=== PATIENT | female | born 1985 | race African-American/Black ===

== ENCOUNTER 2016-05-15 11:53 | Emergency (ER) | payer OTHER ==
[2016-05-15 12:05] VITALS: BMI 19.5
--- NOTE | 2016-05-15 12:22 | PDOC ---
History of Present Illness - General Chief Complaint: Pain, Acute Stated Complaint: CONSTIPATION Time Seen by Provider: 05/15/16 12:20 History Source: Patient Exam Limitations: No Limitations - History of Present Illness Initial Comments: CHIEF COMPLAINT: 30 y/o afebrile female with PMH alcohol abuse (drinks 1L vodka /day) c/o abdominal pain, nausea and vomiting. HISTORY OF PRESENT ILLNESS: The patient drank 1 pint of vodka on Sunday night. Sunday she began vomiting and is c/o burning pain to her upper abdominal area. She states her last BM was sunday and was normal but she hasn't gone since. She also hasn't eaten since Sunday. She denies f/c, WILLIAM, neck pain, cough, CP, SOB, back pain, hematuria, dysuria. Vital signs on arrival are notable for BP of 145/109. REVIEW OF SYSTEMS: GENERAL/CONSTITUTIONAL: No fever. +chills. No weakness. No weight change. HEAD, EYES, EARS, NOSE AND THROAT: No change in vision. No ear pain or discharge. No sore throat. CARDIOVASCULAR: No chest pain or shortness of breath. RESPIRATORY: No cough, wheezing, or hemoptysis. GASTROINTESTINAL: +abd pain, nausea, and vomiting. ?constipation GENITOURINARY: No dysuria, frequency, or change in urination. MUSCULOSKELETAL: No joint or muscle swelling or pain. No neck or back pain. SKIN: No rash or easy bruising. NEUROLOGIC: No headache, vertigo, loss of consciousness, or loss of sensation. PHYSICAL EXAM: GENERAL: The patient is awake, alert, and fully oriented, in no acute distress. She is thin, well appearing and ambulatory HEAD: Normal with no signs of trauma. ENT: Pupils equal, round and reactive to light, extraocular movements intact, sclera anicteric, conjunctiva clear. Neck supple. Mucous membranes moist. Lips dry. +tender left sided posterior cervical lymphadenopathy. LUNGS: Clear to auscultation bilaterally. Normal excursion. No respiratory distress or use of accessory muscles. CV: RRR, S1/S2, no MRG. Cap refill < 2 sec. ABDOMEN: Soft, flat, TTP of epigastric and RUQ with negative Rowe's sign. No rebound, guarding or rigidity. EXTREMITIES: Normal range of motion, no edema. NEUROLOGICAL: Normal speech, normal gait. CN II-XII grossly intact. PSYCH: Normal mood, normal affect. SKIN: Warm, dry, normal turgor, no rashes or lesions noted. Past History - Past Medical History Allergies/Adverse Reactions: Allergies Allergy/AdvReac Type Severity Reaction Status Date / Time No Known Allergies Allergy Verified 05/15/16 12:02 Home Medications: Ambulatory Orders Cetirizine HCl [Zyrtec -] 20 mg PO DAILY PRN 05/15/16 Sucralfate [Carafate -] 1 gm PO QID #56 tablet 05/15/16 Anemia: Yes Asthma: No Cancer: No Cardiac Disorders: No CVA: No COPD: No CHF: No Dementia: No Diabetes: No GI Disorders: No Disorders: No HTN: No Hypercholesterolemia: No Kidney Stones: No Liver Disease: No Suicide Attempt (Hx): No Seizures: No Thyroid Disease: No Other medical history: alcohol abuse,migraines - Reproductive History PID: No - Immunization History Immunization Up to Date: Yes - Psycho/Social/Smoking Cessation Hx Anxiety: No Suicidal Ideation: No Smoking Status: Yes Smoking History: Current every day smoker Have you smoked in the past 12 months: Yes Number of Cigarettes Smoked Daily: 5 Information on smoking cessation initiated: Yes 'Breaking Loose' booklet given: 05/15/16 Hx Alcohol Use: Yes (pinet vodka daily) Drug/Substance Use Hx: No Substance Use Type: Alcohol, Marijuana Hx Substance Use Treatment: Yes Abd/GI Specific PMHX - Complaint Specific PMHX Hepatitis: No Pancreatitis: No *Physical Exam - Vital Signs Last Vital Signs Temp Pulse Resp BP Pulse Ox 97.8 F 70 18 145/109 100 05/15/16 12:02 05/15/16 12:02 05/15/16 12:02 05/15/16 12:02 05/15/16 12:02 ED Treatment Course - LABORATORY CBC & Chemistry Diagram: 05/15/16 13:25 05/15/16 13:25 Medical Decision Making - Medical Decision Making A/P: 30 y/o afebrile female with gastritis secondary to ETOH abuse. Plan is as follows: 1. Labs 2. IV fluids 3. IV zofran, pepcid 4. PO carafate Labs are unremarkable. The patient states she feels much better. Will discharge to home with dx of alcoholic gastritis. Will d/c with rx for carafate. Suggested she stop drinking alcohol and f/u with GI specialist within 2 weeks. Pt instructed to return to the ER with any worsening or concerning symptoms. The patient verbalizes understanding of all instructions, has no further questions and is awaiting discharge. *DC/Admit/Observation/Transfer Diagnosis at time of Disposition: Gastritis Qualifiers: Gastritis type: alcoholic Chronicity: acute Gastritis bleeding: without bleeding Qualified Code(s): K29.20 - Alcoholic gastritis without bleeding - Discharge Dispostion Disposition: HOME Condition at time of disposition: Improved - Referrals Referrals: iVkash Goddard MD [Staff Physician] - Sincere Shepard MD [Staff Physician] - 14 days - Patient Instructions Printed Discharge Instructions: DI for Alcoholic Gastritis Additional Instructions: Discharge Instructions: -Take medication as prescribed -Do not drink alcohol -Follow up with Dr. Shepard within 2 weeks -Return to the ER with any worsening or concerning symptoms
[2016-05-15] MEDS ORDERED: ONDANSETRON 4 MG/2 ML VIAL IVPUSH ONE (12:36)
[2016-05-15] MEDS ORDERED: FAMOTIDINE 20 MG/50 ML IVPB 50 ML IVPB ONE ×2 (12:36→13:20)
[2016-05-15] MEDS ORDERED: SODIUM CHLORIDE 1,000 ML IV STA (12:36)
[2016-05-15] MEDS ORDERED: SUCRALFATE 1 GM TABLET (FP) PO ONE (12:37)
[2016-05-15] MEDS ORDERED: SUCRALFATE 1 GM TABLET (FP) ONE (13:20)
[2016-05-15] MEDS ORDERED: ONDANSETRON 4 MG/2 ML VIAL ONE (13:20)
[2016-05-15 13:36] LABS: BASOPHIL 0.8 % (0-2.0); EOSINOPHIL 1.7 % (0-4.5); MCH 26.7 pg (25.7-33.7); MCHC 32.2 g/dl (32.0-36.0); MEAN CELL VOLUME 82.8 fl (80-96); MEAN PLT VOLUME 8.5 fl (7.5-11.1); NEUTROPHILS 73.3 % (42.8-82.8); PLATELET COUNT 319 K/MM3 (134-434); RDW 18.6 % (11.6-15.6); WHITE BLOOD COUNT 9.7 K/mm3 (4.0-10.0)
--- NOTE | 2016-05-15 13:54 | PDOC ---
*Physical Exam - Vital Signs Last Vital Signs Temp Pulse Resp BP Pulse Ox 97.8 F 70 18 145/109 100 05/15/16 12:02 05/15/16 12:02 05/15/16 12:02 05/15/16 12:02 05/15/16 12:02 ED Treatment Course - LABORATORY CBC & Chemistry Diagram: 05/15/16 13:25 05/15/16 13:25 - ADDITIONAL ORDERS Additional order review: 05/15/16 13:25 RBC 4.84 MCV 82.8 MCHC 32.2 RDW 18.6 H MPV 8.5 Neutrophils % 73.3 D Lymphocytes % 17.2 D Monocytes % 7.0 Eosinophils % 1.7 Basophils % 0.8 Medical Decision Making - Medical Decision Making 05/15/16 13:53 Patient seen and evaluated with the nurse practitioner. I agree with the overall evaluation, assessment, and management with the following summary of visit: 30-year-old female presents with abdominal pain in the setting of EtOH intake. Exam as noted, agree with workup including labs and urinalysis, will reassess and dispo accordingly. *DC/Admit/Observation/Transfer Diagnosis at time of Disposition: Gastritis Qualifiers: Gastritis type: alcoholic Chronicity: acute Gastritis bleeding: without bleeding Qualified Code(s): K29.20 - Alcoholic gastritis without bleeding - Discharge Dispostion Condition at time of disposition: Improved - Referrals Referrals: Vikash Goddard MD [Staff Physician] - - Patient Instructions Printed Discharge Instructions: DI for Alcoholic Gastritis - Post Discharge Activity
[2016-05-15 14:02] LABS: ALBUMIN 4.4 g/dl (3.4-5.0); ALK PHOS 70 U/L (45-117); ANION GAP 11 (8-16); BILIRUBIN,TOTAL 1.1 mg/dL (0.2-1.0); CALCIUM 9.8 mg/dL (8.5-10.1); CO2 27 mmol/L (21-32); CREATININE 0.7 mg/dL (0.55-1.02); GLUCOSE,RANDOM 85 mg/dL (74-106); SGOT/AST 31 U/L (15-37); SGPT/ALT 23 U/L (12-78); TOT PROT 9.1 g/dl (6.4-8.2)
[2016-05-15 17:10] VITALS: BP 138/88; PULSE 55; TEMP 98.5
== END 2016-05-15 16:30 | disposition home or self-care (01) ==
LOC: JER 11:53
PROC: 3E033GC Introduction of Other Therapeutic Substance into Peripheral Vein, Percutaneous Approach (ICD-10-PCS; principal; 2016-05-15)
PROC: 3E033GC Introduction of Other Therapeutic Substance into Peripheral Vein, Percutaneous Approach (ICD-10-PCS; 2016-05-15)
DX: K29.20 Alcoholic gastritis without bleeding (principal)
CPT/HCPCS: 36415; 80053; 83690; 85025; 96365; 96375; 99282-25

== ENCOUNTER 2016-12-06 11:12 | Emergency (ER) | payer OTHER ==
[2016-12-06 11:21] VITALS: BP 147/81; PULSE 77; TEMP 98.2; BMI 19.8
--- NOTE | 2016-12-06 11:45 | PDOC ---
History of Present Illness - General History Source: Patient Exam Limitations: No Limitations - History of Present Illness Initial Comments: 12/06/16 11:48 The patient is a 31 year old female, with a significant past medical history of migraine (never officially diagnosed), previous EtOH abuse (last episode July) who presents to the emergency department with headache. The patient reports having associated photophobia with her headache. She reports having about 13-14 migraines per month. She ranks her headache a 10/10 in pain intensity. She denies recent fevers, chills, or dizziness. She denies recent nausea, vomit, diarrhea or constipation. She denies recent dysuria, frequency, urgency or hematuria. She denies recent chest pain or shortness of breath. Allergies: NKA Past surgical history: None reported. Social history: Nonsmoker.See HPI <Dionicio Ayoub - Last Filed: 12/06/16 11:48> <Paulo Moran - Last Filed: 12/06/16 14:53> - General Chief Complaint: Migraine Headache Stated Complaint: MIGRAINE Time Seen by Provider: 12/06/16 11:43 Past History <Dionicio Ayoub - Last Filed: 12/06/16 11:48> - Past Medical History Anemia: Yes Asthma: No Cancer: No Cardiac Disorders: No CVA: No COPD: No CHF: No Dementia: No Diabetes: No GI Disorders: No Disorders: No HTN: No Hypercholesterolemia: No Kidney Stones: No Liver Disease: No Seizures: No Thyroid Disease: No - Reproductive History PID: No - Immunization History Immunization Up to Date: Yes - Suicide/Smoking/Psychosocial Hx Smoking Status: Yes Smoking History: Current every day smoker Have you smoked in the past 12 months: Yes Number of Cigarettes Smoked Daily: 4 Information on smoking cessation initiated: No 'Breaking Loose' booklet given: 05/15/16 Hx Alcohol Use: No (RECOVERED ALCOHOLIC) Drug/Substance Use Hx: No Substance Use Type: Alcohol, Marijuana Hx Substance Use Treatment: Yes <Paulo Moran - Last Filed: 12/06/16 14:53> - Past Medical History Allergies/Adverse Reactions: Allergies Allergy/AdvReac Type Severity Reaction Status Date / Time No Known Allergies Allergy Verified 12/06/16 11:21 Home Medications: Ambulatory Orders Ibuprofen 800 mg PO TID #30 tablet 12/06/16 Ondansetron [Zofran *Odt*] 8 mg SL TID #30 od.tablet 12/06/16 Review of Systems - Review of Systems Able to Perform ROS?: Yes Comments:: 12/06/16 11:48 GENERAL/CONSTITUTIONAL: No fever or chills. No weakness. HEAD, EYES, EARS, NOSE AND THROAT: No change in vision. No ear pain or discharge. No sore throat. CARDIOVASCULAR: No chest pain or shortness of breath. RESPIRATORY: No cough, wheezing, or hemoptysis. GASTROINTESTINAL: No nausea, vomiting, diarrhea or constipation. GENITOURINARY: No dysuria, frequency, or change in urination. MUSCULOSKELETAL: No joint or muscle swelling or pain. No neck or back pain. SKIN: No rash NEUROLOGIC: +headache No vertigo, loss of consciousness, or change in strength/ sensation. ENDOCRINE: No increased thirst. No abnormal weight change. HEMATOLOGIC/LYMPHATIC: No anemia, easy bleeding, or history of blood clots. ALLERGIC/IMMUNOLOGIC: No hives or skin allergy. <Dionicio Ayoub - Last Filed: 12/06/16 11:48> *Physical Exam - Vital Signs Last Vital Signs Temp Pulse Resp BP Pulse Ox 98.2 F 77 20 147/81 100 12/06/16 11:17 12/06/16 11:17 12/06/16 11:17 12/06/16 11:17 12/06/16 11:17 - Physical Exam Comments: 12/06/16 11:49 GENERAL: Awake, alert, and fully oriented, in no acute distress HEAD: No signs of trauma EYES: PERRLA, EOMI, sclera anicteric, conjunctiva clear ENT: Auricles normal inspection, hearing grossly normal, nares patent, oropharynx clear without exudates. Moist mucosa NECK: Normal ROM, supple, no lymphadenopathy, JVD, or masses LUNGS: Breath sounds equal, clear to auscultation bilaterally. No wheezes, and no crackles HEART: Regular rate and rhythm, normal S1 and S2, no murmurs, rubs or gallops ABDOMEN: Soft, nontender, normoactive bowel sounds. No guarding, no rebound. No masses EXTREMITIES: Normal range of motion, no edema. No clubbing or cyanosis. No cords, erythema, or tenderness NEUROLOGICAL: Cranial nerves II through XII grossly intact. Normal speech, normal gait SKIN: Warm, Dry, normal turgor, no rashes or lesions noted. <Dionicio Ayoub - Last Filed: 12/06/16 11:48> - Vital Signs Last Vital Signs Temp Pulse Resp BP Pulse Ox 98.2 F 77 20 147/81 100 12/06/16 11:17 12/06/16 11:17 12/06/16 11:17 12/06/16 11:17 12/06/16 11:17 <Paulo Moran - Last Filed: 12/06/16 14:53> *DC/Admit/Observation/Transfer - Attestations Scribe Attestion: 12/06/16 11:49 Documentation prepared by Dionicio Ayoub, acting as medical practice manager for Paulo Moran DO. <Dionicio Ayoub - Last Filed: 12/06/16 11:48> - Discharge Dispostion Admit: No - Attestations Physician Attestion: 12/06/16 11:44 I, Dr. Paulo Moran, attest that this document has been prepared under my direction and personally reviewed by me in its entirety. I further attest, that it accurately reflects all work, treatment, procedures and medical decision -making performed by me. <Paulo Moran - Last Filed: 12/06/16 14:53> Diagnosis at time of Disposition: Migraine headache Qualifiers: Migraine type: other Status migrainosus presence: without status migrainosus Intractability: not intractable Qualified Code(s): G43.809 - Other migraine, not intractable, without status migrainosus - Discharge Dispostion Disposition: HOME - Prescriptions Prescriptions: Ibuprofen 800 mg PO TID #30 tablet Ondansetron [Zofran *Odt*] 8 mg SL TID #30 od.tablet - Referrals Referrals: Sohail Alcantara MD [Staff Physician] - - Patient Instructions Printed Discharge Instructions: DI for Migraine Additional Instructions: Libby- Please follow up with Neurology. Your Head CT was normal. Return to us if worse or new symptoms occur. Hope the medicines help Dr. Paulo Moran
[2016-12-06] MEDS ORDERED: KETOROLAC TROMETHAMINE 30 MG/1 ML VIAL IVPUSH ONE (11:53)
[2016-12-06] MEDS ORDERED: ONDANSETRON 4 MG/2 ML VIAL IVPB ONE (11:53)
[2016-12-06] MEDS ORDERED: METOCLOPRAMIDE HCL INJECTION 10 MG/2 ML VIAL IVPUSH ONE (11:53)
[2016-12-06] MEDS ORDERED: SODIUM CHLORIDE 2,000 ML IV STA (11:53)
[2016-12-06] MEDS ORDERED: PREGABALIN 100 MG CAPSULE PO ONE (11:57)
[2016-12-06] MEDS ORDERED: KETOROLAC TROMETHAMINE 30 MG/1 ML VIAL ONE (12:14)
[2016-12-06] MEDS ORDERED: METOCLOPRAMIDE HCL INJECTION 10 MG/2 ML VIAL ONE (12:14)
[2016-12-06] MEDS ORDERED: ONDANSETRON 4 MG/2 ML VIAL ONE (12:14)
[2016-12-06] MEDS ORDERED: PREGABALIN 100 MG CAPSULE ONE (13:03)
[2016-12-06] MEDS ORDERED: ONDANSETRON *ODT* 4 MG TABLET SL ONE (14:51)
[2016-12-06] MEDS ORDERED: ONDANSETRON *ODT* 4 MG TABLET ONE (15:21)
== END 2016-12-06 15:22 | disposition home or self-care (01) ==
LOC: JER 11:12
PROC: 3E033GC Introduction of Other Therapeutic Substance into Peripheral Vein, Percutaneous Approach (ICD-10-PCS; principal; 2016-12-06)
PROC: 3E0333Z Introduction of Anti-inflammatory into Peripheral Vein, Percutaneous Approach (ICD-10-PCS; 2016-12-06)
PROC: 3E0337Z Introduction of Electrolytic and Water Balance Substance into Peripheral Vein, Percutaneous Approach (ICD-10-PCS; 2016-12-06)
DX: G43.809 Other migraine, not intractable, without status migrainosus (principal); F10.10 Alcohol abuse, uncomplicated
CPT/HCPCS: 70450-TC; 84703; 96361; 96374; 96375; 99282-25

== ENCOUNTER 2017-04-20 13:21 | Inpatient (IN) | payer OTHER ==
[2017-04-20 15:42] VITALS: BMI 20.3
--- NOTE | 2017-04-20 20:35 | HP ---
CIWA Score - CIWA Score Nausea/Vomitin-No Nausea/No Vomiting Muscle Tremors: 3 Anxiety: 3 Agitation: 4-Moderately Restless Paroxysmal Sweats: 3 Orientation: 0-Oriented Tacttile Disturbances: 0-None Auditory Disturbances: 0-None Visual Disturbances: 2-Mild Sensitivity Headache: 4-Moderately Severe (pain 8/10) CIWA-Ar Total Score: 19 Admission ROS S - HPI Chief Complaint: withdrawal symptoms Allergies/Adverse Reactions: Allergies Allergy/AdvReac Type Severity Reaction Status Date / Time No Known Allergies Allergy Verified 04/20/17 16:30 History of Present Illness: 31 yo female with hx alcohol and marijuana dependence is here for detox. Reports smoking cigarettes since 15 years old, currently smokes 6 cigarettes per day. PMHX: never injury to the left hands, insomnia, anxiety and depression with previous out patient psychiatric treatment. Last detox September, at [facility]. Longest period of sobriety 7 months . Denies suicidal/ homicidal ideation or suicide attempt. - Ebola screening Have you traveled outside of the country in the last 21 days: No Have you had contact with anyone from an Ebola affected area: No Have you been sick,other than usual withdrawal symptoms: No Do you have a fever: No - Review of Systems Constitutional: Chills, Loss of Appetite (trying to drink ensure in the AM, has not been eating solids), Changes in sleep, Unintentional Wgt. Loss (10 lbs 4-5 months) EENT: reports: No Symptoms Reported Respiratory: reports: Shortness of Breath (with prolong ambualtion) Cardiac: reports: No Symptoms Reported GI: reports: Poor Appetite, Abdominal cramping : reports: No Symptoms Reported (reports no urinary symptoms) Musculoskeletal: reports: Joint Pain Integumentary: reports: No Symptoms Reported Neuro: reports: Numbness (left hand) Endocrine: reports: Increased Thirst, Change in Weight Hematology: reports: Anemia Psychiatric: reports: Orientated x3, Depressed, other (reports feeling sad and melancholic d/t of her mother) Other Systems: Reviewed and Negative Patient History - Patient Medical History Hx Anemia: Yes Hx Asthma: No Hx Chronic Obstructive Pulmonary Disease (COPD): No Hx Cancer: No Hx Cardiac Disorders: No Hx Congestive Heart Failure: No Hx Hypertension: No Hx Hypercholesterolemia: No Hx Pacemaker: No HX Cerebrovascular Accident: No Hx Seizures: No Hx Dementia: No Hx Diabetes: No Hx Gastrointestinal Disorders: No Hx Liver Disease: No Hx Genitourinary Disorders: No Hx Sexually Transmitted Disorders: No Hx Renal Disease (ESRD): No Hx Thyroid Disease: No Hx Human Immunodeficiency Virus (HIV): No (negative) Hx Hepatitis C: No (negative) Hx Depression: Yes Hx Suicide Attempt: No Hx Bipolar Disorder: No (denies) Hx Schizophrenia: No - Patient Surgical History Past Surgical History: No Hx Neurologic Surgery: No Hx Cataract Extraction: No Hx Cardiac Surgery: No Hx Lung Surgery: No Hx Breast Surgery: No Hx Breast Biopsy: No Hx Abdominal Surgery: No Hx Appendectomy: No Hx Cholecystectomy: No Hx Genitourinary Surgery: No Hx Section: No Hx Orthopedic Surgery: No Anesthesia Reaction: No - PPD History Previous Implant?: Yes Documented Results: Negative w/proof Date: 10/16/15 - Reproductive History Last Menstrual Period: 04/20/17 Patient : No - Smoking Cessation Smoking history: Current every day smoker Have you smoked in the past 12 months: Yes Aproximately how many cigarettes per day: 4 Hx Chewing Tobacco Use: No Initiated information on smoking cessation: Yes 'Breaking Loose' booklet given: 04/20/17 - Substances Abused Alcohol Route: Oral Frequency: Daily Amount used: LIQUOR- 1 LITER Age of first use: 17 Date of Last Use: 04/20/17 Marijuana/Hashish Frequency: 1-2 times per week Amount used: did not specify Age of first use: 17 Date of Last Use: 04/20/17 Family Disease History - Family Disease History Family Disease History: CA: Father (alive, colon and prostate CA), Mother (dec, Ovarian and lung cancer ), Other: Father, Mother Admission Physical Exam S - Vital Signs Vital Signs: Vital Signs - 24 hr 04/20/17 15:40 Temperature 98.3 F Pulse Rate 76 Respiratory 20 Rate Blood Pressure 117/73 - Physical General Appearance: Yes: Thin, Anxious HEENTM: Yes: Hearing grossly Normal, Normal ENT Inspection, Normocephalic, Normal Voice, VINICIO, Pharynx Normal, Tm's normal, Other (dy mucous membranes) Respiratory: Yes: Chest Non-Tender, Lungs Clear, Normal Breath Sounds, No Respiratory Distress, No Accessory Muscle Use Neck: Yes: Within Normal Limits, No masses,lesions,Nodules, Trachea in good position Breast: Yes: Breast Exam Deferred Cardiology: Yes: Regular Rhythm, Regular Rate, S1, S2 Abdominal: Yes: Normal Bowel Sounds, Non Tender, Flat, Soft Genitourinary: Yes: Within Normal Limits (reports no urinary symptoms) Back: Yes: Within Normal Limits, Normal Inspection Musculoskeletal: Yes: full range of Motion, Gait Steady, Pelvis Stable Extremities: Yes: Normal Capillary Refill, Normal Inspection, Normal Range of Motion, Non-Tender, Other (poor skin turgor) Neurological: Yes: manager behavior II-XII NML intact, Fully Oriented, Alert, Motor Strength 5/5, Normal Mood/Affect, Normal Response Integumentary: Yes: Normal Color, Dry, Warm Lymphatic: Yes: Within Normal Limits - Diagnostic (1) Paresthesias in left hand Current Visit: Yes Status: Chronic (2) Migraine headache Current Visit: Yes Status: Acute Qualifiers: Migraine type: other Status migrainosus presence: without status migrainosus Intractability: not intractable Qualified Code(s): G43.809 - Other migraine, not intractable, without status migrainosus (3) Weight loss Current Visit: Yes Status: Acute (4) Alcohol dependence with uncomplicated withdrawal Current Visit: Yes Status: Acute (5) Cannabis dependence Current Visit: Yes Status: Chronic (6) Nicotine dependence Current Visit: No Status: Chronic Qualifiers: Nicotine product type: cigarettes Substance use status: uncomplicated Qualified Code(s): F17.210 - Nicotine dependence, cigarettes, uncomplicated (7) Dehydration Current Visit: Yes Status: Acute (8) Depressed mood Current Visit: Yes Status: Acute Cleared for Admission [facility] - Detox or Rehab [facility] Level of Care: Medically Managed Detox Regimen/Protocol: Librium [facility] Breath Alcohol Content Breath Alcohol Content: 0 Urine Pregancy Test - Result Urine Test Results: Negative- NO Line Present Urine Drug Screen - Results Drug Screen Negative: No Urine Drug Screen Results: THC-Marijuana
[2017-04-20] MEDS ORDERED: NICOTINE POLACRILEX 2 MG GUM BC PRN (20:53)
[2017-04-20] MEDS ORDERED: IBUPROFEN 400 MG TABLET (FP) PO PRN (20:53)
[2017-04-20] MEDS ORDERED: LOPERAMIDE HCL 2 MG CAPSULE PO PRN (20:53)
[2017-04-20] MEDS ORDERED: guaiFENesin/D-METHORPHAN HB 10 ML UNIT-DOSE CUPS PO PRN (20:53)
[2017-04-20] MEDS ORDERED: MAGNESIUM CITRATE 300 ML BOTTLE PO PRN (20:53)
[2017-04-20] MEDS ORDERED: P-EPHED 60MG/TRIPROLIDI 2.5MG TABLET PO PRN (20:53)
[2017-04-20] MEDS ORDERED: MAGNESIUM HYDROX 2400MG/30ML ORAL SUSPENSION 30 ML CUP PO PRN (20:53)
[2017-04-20] MEDS ORDERED: MENTHOL/PHENOL 1 EACH UD MM PRN (20:53)
[2017-04-20] MEDS ORDERED: chlordiazePOXIDE HCL 25 MG CAPSULE PO ONE (20:53)
[2017-04-20] MEDS ORDERED: MAG HYDROX/AL HYDROX/SIMETH 30 ML UNIT-DOSE CUP PO PRN (20:53)
[2017-04-20] MEDS: NICOTINE 14 MG/24 HOURS TOPICAL PATCH TD SCH (23:06)
[2017-04-20] MEDS: chlordiazePOXIDE HCL 25 MG CAPSULE PO SCH (23:06)
[2017-04-20] MEDS: THIAMINE HCL 100 MG TABLET (FP) PO SCH (23:55)
[2017-04-21 02:38] LABS: URINE APPEARANCE CLEAR; URINE BILIRUBIN NEGATIVE (NEGATIVE); URINE BLOOD 3+ (NEGATIVE); URINE COLOR YELLOW; URINE GLUCOSE (UA) NEGATIVE (NEGATIVE); URINE KETONE 2+ (NEGATIVE); URINE LEUK ESTERASE NEGATIVE (NEGATIVE); URINE NITRITE NEGATIVE (NEGATIVE)
[2017-04-21 02:48] LABS: URINE PROTEIN 2+ (NEGATIVE)
[2017-04-21 02:49] LABS: EPI CELLS RARE /HPF (FEW); URINE MUCUS FEW
[2017-04-21] MEDS: chlordiazePOXIDE HCL 25 MG CAPSULE PO SCH ×4 (05:42→22:31)
[2017-04-21] MEDS: ACETAMINOPHEN 325 MG TABLET (FP) PO PRN (07:48)
[2017-04-21] MEDS: PRENATAL VITAMINS W/ FOLIC ACID TABLET (FP) PO SCH (10:21)
[2017-04-21] MEDS: PANTOPRAZOLE 40 MG TABLET (FP) PO SCH (10:21)
[2017-04-21] MEDS: NICOTINE 14 MG/24 HOURS TOPICAL PATCH TD SCH (10:22)
[2017-04-21 10:48] LABS: HEMATOCRIT 38.6 % (32.4-45.2); HEMOGLOBIN 12.3 GM/dL (10.7-15.3); MCH 28.6 pg (25.7-33.7); MEAN CELL VOLUME 89.5 fl (80-96); MEAN PLT VOLUME 8.9 fl (7.5-11.1); PLATELET COUNT 265 K/MM3 (134-434); RBC 4.31 M/mm3 (3.60-5.2); RDW 14.2 % (11.6-15.6); WHITE BLOOD COUNT 6.5 K/mm3 (4.0-10.0)
[2017-04-21 11:12] LABS: ALBUMIN 4.2 g/dl (3.4-5.0); ALK PHOS 79 U/L (45-117); ANION GAP 9 (8-16); BILIRUBIN,TOTAL 1.5 mg/dL (0.2-1.0); BLOOD UREA NITROGEN 14 mg/dL (7-18); CHLORIDE 101 mmol/L (98-107); CO2 27 mmol/L (21-32); CREATININE 0.6 mg/dL (0.55-1.02); GLUCOSE,RANDOM 81 mg/dL (74-106); POTASSIUM 3.3 mmol/L (3.5-5.1); SGOT/AST 20 U/L (15-37); SGPT/ALT 16 U/L (12-78); SODIUM 137 mmol/L (136-145); TOT PROT 8.8 g/dl (6.4-8.2)
[2017-04-21 11:18] LABS: SICKLE CELL SCREEN NEGATIVE (NEGATIVE)
--- NOTE | 2017-04-21 12:19 | PN ---
S CIWA - CIWA Score Nausea/Vomitin Muscle Tremors: 3 Anxiety: 3 Agitation: 3 Paroxysmal Sweats: 1-Minimal Palms Moist Orientation: 0-Oriented Tacttile Disturbances: 1-Very Mild Itch/Numbness Auditory Disturbances: 1-Very Mild Visual Disturbances: 0-None Headache: 2-Mild CIWA-Ar Total Score: 17 [facility] Progress Note (SOAP) Subjective: ALERT,IRRITABLE,PAIN IN THE BODY AND BACK,TREMOR,PAIN IN THE BODY AND BACK Objective: 04/21/17 12:17 Vital Signs Temperature 97.3 F L 04/21/17 10:10 Pulse Rate 60 04/21/17 10:10 Respiratory Rate 18 04/21/17 10:10 Blood Pressure 123/74 04/21/17 10:10 O2 Sat by Pulse Oximetry (%) EKG SINUS BRADYCARDIA 56/MIN,NO CHEST PAIN,NO SOB,NO DIZZINESS Laboratory Last Values WBC 6.5 K/mm3 (4.0-10.0) D 04/21/17 07:50 RBC 4.31 M/mm3 (3.60-5.2) 04/21/17 07:50 Hgb 12.3 GM/dL (10.7-15.3) 04/21/17 07:50 Hct 38.6 % (32.4-45.2) 04/21/17 07:50 MCV 89.5 fl (80-96) 04/21/17 07:50 MCH 28.6 pg (25.7-33.7) 04/21/17 07:50 MCHC 32.0 g/dl (32.0-36.0) 04/21/17 07:50 RDW 14.2 % (11.6-15.6) D 04/21/17 07:50 Plt Count 265 K/MM3 (134-434) 04/21/17 07:50 MPV 8.9 fl (7.5-11.1) 04/21/17 07:50 Sickle Cell Screen Negative (NEGATIVE) 04/21/17 07:50 Sodium 137 mmol/L (136-145) 04/21/17 07:50 Potassium 3.3 mmol/L (3.5-5.1) L 04/21/17 07:50 Chloride 101 mmol/L (98-107) 04/21/17 07:50 Carbon Dioxide 27 mmol/L (21-32) 04/21/17 07:50 Anion Gap 9 (8-16) 04/21/17 07:50 BUN 14 mg/dL (7-18) 04/21/17 07:50 Creatinine 0.6 mg/dL (0.55-1.02) 04/21/17 07:50 Creat Clearance w eGFR > 60 (>60) 04/21/17 07:50 Random Glucose 81 mg/dL (74-106) 04/21/17 07:50 Calcium 9.0 mg/dL (8.5-10.1) 04/21/17 07:50 Total Bilirubin 1.5 mg/dL (0.2-1.0) H D 04/21/17 07:50 AST 20 U/L (15-37) 04/21/17 07:50 ALT 16 U/L (12-78) 04/21/17 07:50 Alkaline Phosphatase 79 U/L (45-117) 04/21/17 07:50 Total Protein 8.8 g/dl (6.4-8.2) H 04/21/17 07:50 Albumin 4.2 g/dl (3.4-5.0) 04/21/17 07:50 Urine Color Yellow 04/20/17 22:42 Urine Appearance Clear 04/20/17 22:42 Urine pH 5.0 (5.0-8.0) 04/20/17 22:42 Ur Specific Elizabeth 1.028 (1.001-1.035) 04/20/17 22:42 Urine Protein 2+ (NEGATIVE) H 04/20/17 22:42 Urine Glucose (UA) Negative (NEGATIVE) 04/20/17 22:42 Urine Ketones 2+ (NEGATIVE) H 04/20/17 22:42 Urine Blood 3+ (NEGATIVE) H 04/20/17 22:42 Urine Nitrite Negative (NEGATIVE) 04/20/17 22:42 Urine Bilirubin Negative (NEGATIVE) 04/20/17 22:42 Urine Urobilinogen 2.0 mg/dL (0.2-1.0) H 04/20/17 22:42 Ur Leukocyte Esterase Negative (NEGATIVE) 04/20/17 22:42 Urine WBC (Auto) 7 /hpf (3-5) 04/20/17 22:42 Urine RBC (Auto) 618 /hpf (0-3) 04/20/17 22:42 Ur Epithelial Cells Rare /HPF (FEW) 04/20/17 22:42 Urine Mucus Few 04/20/17 22:42 RPR Titer Nonreactive (NONREACTIVE) 04/21/17 07:50 04/21/17 12:21 PATIENT IS MENSTRUATING NOW Assessment: 04/21/17 12:22 WITHDRAWAL SYMPTOM Plan: CONTINUE DETOX
--- NOTE | 2017-04-21 17:48 | CONSULT ---
[facility] Psychiatric Consult - Data Date of interview: 04/21/17 Admission source: [facility] Identifying data: Readmission to [facility] for this 31 y/o AA female seeking detox treatment on for alcohol and marijuana dependence.Patient is single without children,domiciled,currently unemployed and supported by relatives. Substance Abuse History: Confirmed by patient in this session.[facility] report .Smoking history: Current every day smoker. Have you smoked in the past 12 months: Yes. Aproximately how many cigarettes per day: 4. Hx Chewing Tobacco Use: No. Initiated information on smoking cessation: Yes. 'Breaking Loose' booklet given: 04/20/17. - Substances Abused. Alcohol. Route: Oral. Frequency: Daily. Amount used: LIQUOR- 1 LITER. Age of first use: 17. Date of Last Use: 04/20/17. Marijuana/Hashish. Frequency : 1-2 times per week. Amount used: did not specify. Age of first use: 17. 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 Psychiatric History: No reported history of psychiatric hospitalizations.Brief exposure to zoloft and seroquel (2012) to address complaints of anxiety / depression.Patient dropped out of OPD care because of poor response to medications.Ms Gil denies history of suicide attempts (she states that she punched the glass in an impulsive act). Physical/Sexual Abuse/Trauma History: No history of abuse. Additional Comment: Urine Drug Screen Results: THC-Marijuana.Noted. Mental Status Exam - Mental Status Exam Alert and Oriented to: Time, Place, Person Cognitive Function: Good Patient Appearance: Well Groomed Mood: Anxious (mildly anxious), Hopeful Affect: Appropriate, Normal Range Patient Behavior: Appropriate, Cooperative Speech Pattern: Clear, Appropriate Voice Loudness: Normal Thought Process: Intact, Goal Oriented Thought Disorder: Not Present Hallucinations: Denies Suicidal Ideation: Denies Insight/Judgement: Poor Sleep: Poorly (wants seroquel), Difficulty falling asleep Appetite: Good Muscle strength/Tone: Normal Gait/Station: Normal Psychiatric Findings - Problem List ([place] 1, 2,3) (1) Alcohol dependence with uncomplicated withdrawal Current Visit: Yes Status: Acute (2) Cannabis dependence Current Visit: Yes Status: Acute (3) Nicotine dependence Current Visit: Yes Status: Acute Qualifiers: Nicotine product type: cigarettes Substance use status: uncomplicated Qualified Code(s): F17.210 - Nicotine dependence, cigarettes, uncomplicated (4) Alcohol-induced mood disorder Current Visit: Yes Status: Suspected (5) Insomnia Current Visit: Yes Status: Acute - Initial Treatment Plan Initial Treatment Plan: Psychoeducation and support.Detoxification in effect.Sleep hygiene discussed with patient.Strategies of treatment for depression reviewed with patient.Emphasis is currently placed on detoxification/ sobriety.Antidepressant medications deferred until transition to rehabilitation unit (3-4 days).In the meantime,will resume seroquel 50 mg po hs (patient's request).Side effects/benefits are revisited with the patient.Ms Gil has expressed her agreement with this plan of care.Observation.
[2017-04-21] MEDS: THIAMINE HCL 100 MG TABLET (FP) PO SCH (22:31)
[2017-04-21] MEDS: hydrOXYzine PAMOATE 50 MG CAPSULE (FP) PO PRN (22:31)
[2017-04-22] MEDS: ACETAMINOPHEN 325 MG TABLET (FP) PO PRN ×2 (05:27→10:26)
[2017-04-22] MEDS: chlordiazePOXIDE HCL 25 MG CAPSULE PO SCH ×3 (05:27→18:05)
[2017-04-22] MEDS: PANTOPRAZOLE 40 MG TABLET (FP) PO SCH (10:24)
[2017-04-22] MEDS: NICOTINE 14 MG/24 HOURS TOPICAL PATCH TD SCH (10:25)
[2017-04-22] MEDS: PRENATAL VITAMINS W/ FOLIC ACID TABLET (FP) PO SCH (10:25)
--- NOTE | 2017-04-22 13:04 | PN ---
S CIWA - CIWA Score Nausea/Vomitin-Mild Nausea/No Vomiting Muscle Tremors: 3 Anxiety: 3 Agitation: 3 Paroxysmal Sweats: 1-Minimal Palms Moist Orientation: 0-Oriented Tacttile Disturbances: 1-Very Mild Itch/Numbness Auditory Disturbances: 0-None Visual Disturbances: 0-None Headache: 1-Very Mild CIWA-Ar Total Score: 13 BHS Progress Note (SOAP) Subjective: headache sweat tremor anxiety restlessness Objective: 04/22/17 13:02 Vital Signs Temperature 97.7 F 04/22/17 10:13 Pulse Rate 77 04/22/17 10:13 Respiratory Rate 20 04/22/17 10:13 Blood Pressure 127/67 04/22/17 10:13 O2 Sat by Pulse Oximetry (%) Laboratory Last Values WBC 6.5 K/mm3 (4.0-10.0) D 04/21/17 07:50 RBC 4.31 M/mm3 (3.60-5.2) 04/21/17 07:50 Hgb 12.3 GM/dL (10.7-15.3) 04/21/17 07:50 Hct 38.6 % (32.4-45.2) 04/21/17 07:50 MCV 89.5 fl (80-96) 04/21/17 07:50 MCH 28.6 pg (25.7-33.7) 04/21/17 07:50 MCHC 32.0 g/dl (32.0-36.0) 04/21/17 07:50 RDW 14.2 % (11.6-15.6) D 04/21/17 07:50 Plt Count 265 K/MM3 (134-434) 04/21/17 07:50 MPV 8.9 fl (7.5-11.1) 04/21/17 07:50 Sickle Cell Screen Negative (NEGATIVE) 04/21/17 07:50 Sodium 137 mmol/L (136-145) 04/21/17 07:50 Potassium 3.3 mmol/L (3.5-5.1) L 04/21/17 07:50 Chloride 101 mmol/L (98-107) 04/21/17 07:50 Carbon Dioxide 27 mmol/L (21-32) 04/21/17 07:50 Anion Gap 9 (8-16) 04/21/17 07:50 BUN 14 mg/dL (7-18) 04/21/17 07:50 Creatinine 0.6 mg/dL (0.55-1.02) 04/21/17 07:50 Creat Clearance w eGFR > 60 (>60) 04/21/17 07:50 Random Glucose 81 mg/dL (74-106) 04/21/17 07:50 Calcium 9.0 mg/dL (8.5-10.1) 04/21/17 07:50 Total Bilirubin 1.5 mg/dL (0.2-1.0) H D 04/21/17 07:50 AST 20 U/L (15-37) 04/21/17 07:50 ALT 16 U/L (12-78) 04/21/17 07:50 Alkaline Phosphatase 79 U/L (45-117) 04/21/17 07:50 Total Protein 8.8 g/dl (6.4-8.2) H 04/21/17 07:50 Albumin 4.2 g/dl (3.4-5.0) 04/21/17 07:50 Urine Color Yellow 04/20/17 22:42 Urine Appearance Clear 04/20/17 22:42 Urine pH 5.0 (5.0-8.0) 04/20/17 22:42 Ur Specific [place] 1.028 (1.001-1.035) 04/20/17 22:42 Urine Protein 2+ (NEGATIVE) H 04/20/17 22:42 Urine Glucose (UA) Negative (NEGATIVE) 04/20/17 22:42 Urine Ketones 2+ (NEGATIVE) H 04/20/17 22:42 Urine Blood 3+ (NEGATIVE) H 04/20/17 22:42 Urine Nitrite Negative (NEGATIVE) 04/20/17 22:42 Urine Bilirubin Negative (NEGATIVE) 04/20/17 22:42 Urine Urobilinogen 2.0 mg/dL (0.2-1.0) H 04/20/17 22:42 Ur Leukocyte Esterase Negative (NEGATIVE) 04/20/17 22:42 Urine WBC (Auto) 7 /hpf (3-5) 04/20/17 22:42 Urine RBC (Auto) 618 /hpf (0-3) 04/20/17 22:42 Ur Epithelial Cells Rare /HPF (FEW) 04/20/17 22:42 Urine Mucus Few 04/20/17 22:42 RPR Titer Nonreactive (NONREACTIVE) 04/21/17 07:50 Hepatitis C Antibody 0.2 s/co ratio (0.0-0.9) 04/21/17 07:50 lab noted Assessment: 04/22/17 13:03 withdrawal sx Plan: continue detox
[2017-04-22] MEDS: chlordiazePOXIDE HCL 25 MG CAPSULE PO PRN (13:09)
--- NOTE | 2017-04-22 13:20 | EKG ---
Test Reason : Blood Pressure : / mmHG Vent. Rate : 056 BPM Atrial Rate : 056 BPM P-R Int : 172 ms QRS Dur : 088 ms QT Int : 404 ms P-R-T Axes : 056 055 040 degrees QTc Int : 389 ms SINUS BRADYCARDIA OTHERWISE NORMAL ECG NO PREVIOUS ECGS AVAILABLE BASELINE ARTIFACT Confirmed by JEET ZAYAS, MELVA ([id number]) on 04/22/2017 1:19:56 PM Referred By: Confirmed By:MELVA MARCANO MD
[2017-04-22] MEDS: POTASSIUM CHLORIDE ORAL LIQUID 20 MEQ/15 ML PO SCH ×2 (14:14→21:08)
[2017-04-22] MEDS: NAPROXEN 500 MG TABLET (FP) PO PRN (18:08)
[2017-04-22] MEDS: chlordiazePOXIDE 5 MG CAPSULE PO SCH (22:26)
[2017-04-22] MEDS: THIAMINE HCL 100 MG TABLET (FP) PO SCH (22:26)
[2017-04-22] MEDS: hydrOXYzine PAMOATE 50 MG CAPSULE (FP) PO PRN (22:27)
[2017-04-23] MEDS: chlordiazePOXIDE 5 MG CAPSULE PO SCH ×3 (05:44→17:46)
[2017-04-23] MEDS: NAPROXEN 500 MG TABLET (FP) PO PRN ×2 (05:46→17:50)
--- NOTE | 2017-04-23 09:46 | PN ---
S Progress Note (SOAP) Subjective: mild sweat, no tremor less anxiety Objective: 04/23/17 09:45 Vital Signs Temperature 97 F L 04/23/17 06:24 Pulse Rate 77 04/23/17 06:24 Respiratory Rate 18 04/23/17 06:24 Blood Pressure 114/77 04/23/17 06:24 O2 Sat by Pulse Oximetry (%) Laboratory Last Values WBC 6.5 K/mm3 (4.0-10.0) D 04/21/17 07:50 RBC 4.31 M/mm3 (3.60-5.2) 04/21/17 07:50 Hgb 12.3 GM/dL (10.7-15.3) 04/21/17 07:50 Hct 38.6 % (32.4-45.2) 04/21/17 07:50 MCV 89.5 fl (80-96) 04/21/17 07:50 MCH 28.6 pg (25.7-33.7) 04/21/17 07:50 MCHC 32.0 g/dl (32.0-36.0) 04/21/17 07:50 RDW 14.2 % (11.6-15.6) D 04/21/17 07:50 Plt Count 265 K/MM3 (134-434) 04/21/17 07:50 MPV 8.9 fl (7.5-11.1) 04/21/17 07:50 Sickle Cell Screen Negative (NEGATIVE) 04/21/17 07:50 Sodium 137 mmol/L (136-145) 04/21/17 07:50 Potassium 3.3 mmol/L (3.5-5.1) L 04/21/17 07:50 Chloride 101 mmol/L (98-107) 04/21/17 07:50 Carbon Dioxide 27 mmol/L (21-32) 04/21/17 07:50 Anion Gap 9 (8-16) 04/21/17 07:50 BUN 14 mg/dL (7-18) 04/21/17 07:50 Creatinine 0.6 mg/dL (0.55-1.02) 04/21/17 07:50 Creat Clearance w eGFR > 60 (>60) 04/21/17 07:50 Random Glucose 81 mg/dL (74-106) 04/21/17 07:50 Calcium 9.0 mg/dL (8.5-10.1) 04/21/17 07:50 Total Bilirubin 1.5 mg/dL (0.2-1.0) H D 04/21/17 07:50 AST 20 U/L (15-37) 04/21/17 07:50 ALT 16 U/L (12-78) 04/21/17 07:50 Alkaline Phosphatase 79 U/L (45-117) 04/21/17 07:50 Total Protein 8.8 g/dl (6.4-8.2) H 04/21/17 07:50 Albumin 4.2 g/dl (3.4-5.0) 04/21/17 07:50 Urine Color Yellow 04/20/17 22:42 Urine Appearance Clear 04/20/17 22:42 Urine pH 5.0 (5.0-8.0) 04/20/17 22:42 Ur Specific [place] 1.028 (1.001-1.035) 04/20/17 22:42 Urine Protein 2+ (NEGATIVE) H 04/20/17 22:42 Urine Glucose (UA) Negative (NEGATIVE) 04/20/17 22:42 Urine Ketones 2+ (NEGATIVE) H 04/20/17 22:42 Urine Blood 3+ (NEGATIVE) H 04/20/17 22:42 Urine Nitrite Negative (NEGATIVE) 04/20/17 22:42 Urine Bilirubin Negative (NEGATIVE) 04/20/17 22:42 Urine Urobilinogen 2.0 mg/dL (0.2-1.0) H 04/20/17 22:42 Ur Leukocyte Esterase Negative (NEGATIVE) 04/20/17 22:42 Urine WBC (Auto) 7 /hpf (3-5) 04/20/17 22:42 Urine RBC (Auto) 618 /hpf (0-3) 04/20/17 22:42 Ur Epithelial Cells Rare /HPF (FEW) 04/20/17 22:42 Urine Mucus Few 04/20/17 22:42 RPR Titer Nonreactive (NONREACTIVE) 04/21/17 07:50 Hepatitis C Antibody 0.2 s/co ratio (0.0-0.9) 04/21/17 07:50 lab noted Assessment: 04/23/17 09:45 withdrawal sx Plan: continue detox
[2017-04-23 09:48] LABS: URINE APPEARANCE CLEAR; URINE BILIRUBIN NEGATIVE (NEGATIVE); URINE BLOOD NEGATIVE (NEGATIVE); URINE COLOR YELLOW; URINE GLUCOSE (UA) NEGATIVE (NEGATIVE); URINE KETONE NEGATIVE (NEGATIVE); URINE LEUK ESTERASE NEGATIVE (NEGATIVE); URINE NITRITE NEGATIVE (NEGATIVE); URINE PROTEIN NEGATIVE (NEGATIVE)
[2017-04-23] MEDS: PRENATAL VITAMINS W/ FOLIC ACID TABLET (FP) PO SCH (10:21)
[2017-04-23] MEDS: PANTOPRAZOLE 40 MG TABLET (FP) PO SCH (10:21)
[2017-04-23] MEDS: ACETAMINOPHEN 325 MG TABLET (FP) PO PRN ×2 (10:22→22:09)
[2017-04-23] MEDS: NICOTINE 14 MG/24 HOURS TOPICAL PATCH TD SCH (10:22)
[2017-04-23] MEDS: chlordiazePOXIDE HCL 25 MG CAPSULE PO PRN (15:15)
[2017-04-23] MEDS: THIAMINE HCL 100 MG TABLET (FP) PO SCH (22:08)
[2017-04-23] MEDS: chlordiazePOXIDE HCL 10 MG CAPSULE PO SCH (22:08)
[2017-04-23] MEDS: hydrOXYzine PAMOATE 50 MG CAPSULE (FP) PO PRN (22:10)
[2017-04-24] MEDS: chlordiazePOXIDE HCL 10 MG CAPSULE PO SCH (05:26)
[2017-04-24] MEDS: ACETAMINOPHEN 325 MG TABLET (FP) PO PRN (05:27)
[2017-04-24 07:07] VITALS: BP 124/83; PULSE 68; TEMP 97.5
--- NOTE | 2017-04-24 09:31 | DS ---
[facility] Detox Discharge Summary Admission Date: 04/20/17 Discharge Date: 04/24/17 - History Present History: Alcohol Dependence - Physical Exam Results Vital Signs: Vital Signs Temperature 97.5 F L 04/24/17 06:00 Pulse Rate 68 04/24/17 06:00 Respiratory Rate 18 04/24/17 06:00 Blood Pressure 124/83 04/24/17 06:00 O2 Sat by Pulse Oximetry (%) Pertinent Admission Physical Exam Findings: withdrawal sx Vital Signs Temperature 97.5 F L 04/24/17 06:00 Pulse Rate 68 04/24/17 06:00 Respiratory Rate 18 04/24/17 06:00 Blood Pressure 124/83 04/24/17 06:00 O2 Sat by Pulse Oximetry (%) Laboratory Last Values WBC 6.5 K/mm3 (4.0-10.0) D 04/21/17 07:50 RBC 4.31 M/mm3 (3.60-5.2) 04/21/17 07:50 Hgb 12.3 GM/dL (10.7-15.3) 04/21/17 07:50 Hct 38.6 % (32.4-45.2) 04/21/17 07:50 MCV 89.5 fl (80-96) 04/21/17 07:50 MCH 28.6 pg (25.7-33.7) 04/21/17 07:50 MCHC 32.0 g/dl (32.0-36.0) 04/21/17 07:50 RDW 14.2 % (11.6-15.6) D 04/21/17 07:50 Plt Count 265 K/MM3 (134-434) 04/21/17 07:50 MPV 8.9 fl (7.5-11.1) 04/21/17 07:50 Sickle Cell Screen Negative (NEGATIVE) 04/21/17 07:50 Sodium 137 mmol/L (136-145) 04/21/17 07:50 Potassium 4.3 mmol/L (3.5-5.1) 04/23/17 07:00 Chloride 101 mmol/L (98-107) 04/21/17 07:50 Carbon Dioxide 27 mmol/L (21-32) 04/21/17 07:50 Anion Gap 9 (8-16) 04/21/17 07:50 BUN 14 mg/dL (7-18) 04/21/17 07:50 Creatinine 0.6 mg/dL (0.55-1.02) 04/21/17 07:50 Creat Clearance w eGFR > 60 (>60) 04/21/17 07:50 Random Glucose 81 mg/dL (74-106) 04/21/17 07:50 Calcium 9.0 mg/dL (8.5-10.1) 04/21/17 07:50 Total Bilirubin 1.5 mg/dL (0.2-1.0) H D 04/21/17 07:50 AST 20 U/L (15-37) 04/21/17 07:50 ALT 16 U/L (12-78) 04/21/17 07:50 Alkaline Phosphatase 79 U/L (45-117) 04/21/17 07:50 Total Protein 8.8 g/dl (6.4-8.2) H 04/21/17 07:50 Albumin 4.2 g/dl (3.4-5.0) 04/21/17 07:50 Urine Color Yellow 04/23/17 07:00 Urine Appearance Clear 04/23/17 07:00 Urine pH 6.0 (5.0-8.0) 04/23/17 07:00 Ur Specific [place] 1.031 (1.001-1.035) 04/23/17 07:00 Urine Protein Negative (NEGATIVE) 04/23/17 07:00 Urine Glucose (UA) Negative (NEGATIVE) 04/23/17 07:00 Urine Ketones Negative (NEGATIVE) 04/23/17 07:00 Urine Blood Negative (NEGATIVE) 04/23/17 07:00 Urine Nitrite Negative (NEGATIVE) 04/23/17 07:00 Urine Bilirubin Negative (NEGATIVE) 04/23/17 07:00 Urine Urobilinogen 2.0 mg/dL (0.2-1.0) H 04/23/17 07:00 Ur Leukocyte Esterase Negative (NEGATIVE) 04/23/17 07:00 Urine WBC (Auto) 7 /hpf (3-5) 04/20/17 22:42 Urine RBC (Auto) 618 /hpf (0-3) 04/20/17 22:42 Ur Epithelial Cells Rare /HPF (FEW) 04/20/17 22:42 Urine Mucus Few 04/20/17 22:42 RPR Titer Nonreactive (NONREACTIVE) 04/21/17 07:50 Hepatitis C Antibody 0.2 s/co ratio (0.0-0.9) 04/21/17 07:50 lab noted - Treatment Hospital Course: Detox Protocol Followed, Detoxed Safely, Responded well, Discharged Condition Good, Rehab Referral Accepted Patient has Accepted a Rehab Referral to: as per counselor arranged - Medication Discharge Medications: Ambulatory Orders Pantoprazole Sodium [Protonix -] 40 mg PO DAILY #14 tablet.ec 04/24/17 - AMA Did Patient Leave Against Medical Advice: No
== END 2017-04-24 10:07 | disposition home or self-care (01) | DRG 775 ==
LOC: YASAS 13:21 → Y6N 18:14
PROVIDERS: ADMIT Internal Medicine; ATTEND Internal Medicine
PROC: HZ2ZZZZ Detoxification Services for Substance Abuse Treatment (ICD-10-PCS; principal; 2017-04-20)
DX: F10.230 Alcohol dependence with withdrawal, uncomplicated (principal); F10.24 Alcohol dependence with alcohol-induced mood disorder; F12.20 Cannabis dependence, uncomplicated; F17.210 Nicotine dependence, cigarettes, uncomplicated; F32.9 Major depressive disorder, single episode, unspecified; E86.0 Dehydration; G47.00 Insomnia, unspecified; R00.1 Bradycardia, unspecified; G43.809 Other migraine, not intractable, without status migrainosus; D64.9 Anemia, unspecified; R20.2 Paresthesia of skin; Z87.898 Personal history of other specified conditions
CPT/HCPCS: 36415; 80053; 81003; 81015; 84132; 85027; 85660; 86593; 86803; 93005; 93010

== ENCOUNTER 2017-07-08 23:40 | Inpatient (IN) | payer OTHER ==
--- NOTE | 2017-07-09 00:47 | HP ---
CIWA Score - CIWA Score Nausea/Vomitin-No Nausea/No Vomiting Muscle Tremors: 4-Moderate,w/Arms Extend Anxiety: 4-Mod. Anxious/Guarded Agitation: 4-Moderately Restless Paroxysmal Sweats: 3 Orientation: 1-Uncertain about Date Tacttile Disturbances: 0-None Auditory Disturbances: 0-None Visual Disturbances: 0-None Headache: 3-Moderate CIWA-Ar Total Score: 19 Admission ROS BHS - HPI Chief Complaint: C/O WITHDRAWAL SX'S. SEEKING DETOX FOR ALCOHOLISM Allergies/Adverse Reactions: Allergies Allergy/AdvReac Type Severity Reaction Status Date / Time No Known Allergies Allergy Verified 07/09/17 00:41 History of Present Illness: 32 Y..O FEMLAE WITH LONG HX/O ALCOHOLISM HERE FOR DETOX. CLIENT IS KNOWN TO THIS PROGRAM. LAST HERE 04/2017. SHE HAS SINCE RELAPSED AND IS SEEKING INPATIENT REHAB AFTER DETOX. SELF REFERRED. REPORTS LONGEST CLEAN TIME 9 MONTHS SELF MAINTAINED. PMHX: L HAND NERVE DAMAGE WITH NUMBNESS, GERD, DEPRESSION, INSOMNIA. DENIES C.P. , SOB, SI, HI AND A/V HALLUCINATIONS. Exam Limitations: No Limitations - Ebola screening Have you traveled outside of the country in the last 21 days: No Have you had contact with anyone from an Ebola affected area: No Have you been sick,other than usual withdrawal symptoms: No Do you have a fever: No - Review of Systems Constitutional: Chills, Loss of Appetite, Night Sweats, Changes in sleep, Unintentional Wgt. Loss EENT: reports: No Symptoms Reported Respiratory: reports: No Symptoms reported Cardiac: reports: No Symptoms Reported GI: reports: Poor Appetite, Poor Fluid Intake : reports: No Symptoms Reported Musculoskeletal: reports: Neck Pain Integumentary: reports: No Symptoms Reported Neuro: reports: Numbness (L HAND) Endocrine: reports: No Symptoms Reported Hematology: reports: No Symptoms Reported Psychiatric: reports: Anxious, Depressed Other Systems: Reviewed and Negative Patient History - Patient Medical History Hx Anemia: Yes (NO MED MGMT) Hx Asthma: No Hx Chronic Obstructive Pulmonary Disease (COPD): No Hx Cancer: No Hx Cardiac Disorders: No Hx Congestive Heart Failure: No Hx Hypertension: No Hx Hypercholesterolemia: No Hx Pacemaker: No HX Cerebrovascular Accident: No Hx Seizures: No Hx Dementia: No Hx Diabetes: No Hx Gastrointestinal Disorders: Yes (GERD) Hx Liver Disease: No Hx Genitourinary Disorders: No Hx Sexually Transmitted Disorders: No Hx Renal Disease (ESRD): No Hx Thyroid Disease: No Hx Human Immunodeficiency Virus (HIV): No Hx Hepatitis C: No Hx Depression: Yes (NO COMPLAINT) Hx Suicide Attempt: No Hx Bipolar Disorder: No Hx Schizophrenia: No Other Medical History: 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 - Patient Surgical History Past Surgical History: No Hx Neurologic Surgery: No Hx Cataract Extraction: No Hx Cardiac Surgery: No Hx Lung Surgery: No Hx Breast Surgery: No Hx Breast Biopsy: No Hx Abdominal Surgery: No Hx Appendectomy: No Hx Cholecystectomy: No Hx Genitourinary Surgery: No Hx Section: No Hx Orthopedic Surgery: No Anesthesia Reaction: No - PPD History Previous Implant?: Yes Documented Results: Negative w/proof Implanted On Prior [facility] Admission?: Yes Date: 04/22/17 Results: 0MM PPD to be Administered?: No - Reproductive History Patient is a Female of Child Bearing Age (11 -55 yrs old): Yes Last Menstrual Period: 06/13/17 Patient : No ([facility] [place]) - Smoking Cessation Smoking history: Current every day smoker Have you smoked in the past 12 months: Yes Aproximately how many cigarettes per day: 4 Cigars Per Day: 0 Hx Chewing Tobacco Use: No Initiated information on smoking cessation: Yes 'Breaking Loose' booklet given: 07/09/17 - Substance & Tx. History Hx Alcohol Use: Yes Hx Substance Use: Yes Substance Use Type: Alcohol, Marijuana Hx Substance Use Treatment: Yes ([facility]) - Substances Abused LIQUOR Route: Oral Frequency: Daily Amount used: 1 LITER Age of first use: 17 Date of Last Use: 07/08/17 THC Route: Smoking Frequency: Daily Amount used: 4 BLUNTS Age of first use: 17 Date of Last Use: 07/08/17 Family Disease History - Family Disease History Family Disease History: CA: Father (alive, colon and prostate CA), Mother (dec, Ovarian and lung cancer ), Other: Father, Mother Admission Physical Exam [facility] - Physical General Appearance: Yes: Mild Distress, Alcohol on Breath, Intoxicated, Thin HEENTM: Yes: EOMI, Normocephalic, Normal Voice, VINICIO, Pharynx Normal Respiratory: Yes: Chest Non-Tender, Lungs Clear, Normal Breath Sounds, No Respiratory Distress, No Accessory Muscle Use Neck: Yes: No masses,lesions,Nodules, Supple, Trachea in good position Breast: Yes: Breast Exam Deferred Cardiology: Yes: Regular Rhythm, Regular Rate, S1, S2 Abdominal: Yes: Normal Bowel Sounds, Non Tender, Flat, Soft Genitourinary: Yes: Within Normal Limits Back: Yes: Normal Inspection Musculoskeletal: Yes: full range of Motion, Gait Steady Extremities: Yes: Normal Capillary Refill, Non-Tender, Tremors (FELT), Other ( LEFT HAND 4/5 DIGIT WITH CONTRACTURES) Neurological: Yes: assistant associate professor II-XII NML intact, Fully Oriented, Alert, Motor Strength 5/5 Integumentary: Yes: Normal Color, Dry, Warm Lymphatic: Yes: Within Normal Limits - Addiitonal Findings: WITHDRAWAL SX'S - Diagnostic (1) Alcohol dependence with uncomplicated withdrawal Current Visit: Yes Status: Chronic (2) Cannabis dependence Current Visit: Yes Status: Chronic (3) Dehydration Current Visit: Yes Status: Acute (4) Depressed mood Current Visit: Yes Status: Suspected (5) Gastritis Current Visit: Yes Status: Chronic Qualifiers: Gastritis type: alcoholic Chronicity: acute Gastritis bleeding: without bleeding Qualified Code(s): K29.20 - Alcoholic gastritis without bleeding (6) Nicotine dependence Current Visit: Yes Status: Chronic Qualifiers: Nicotine product type: cigarettes Substance use status: uncomplicated Qualified Code(s): F17.210 - Nicotine dependence, cigarettes, uncomplicated (7) Paresthesias in left hand Current Visit: Yes Status: Chronic Cleared for Admission S - Detox or Rehab [facility] Level of Care: Medically Managed Detox Regimen/Protocol: Librium Claeared for Rehab Admission: No S Breath Alcohol Content Breath Alcohol Content: 0.105 Vital Signs - Vital Signs Vital Signs Refused: No Temperature: 97.6 F Temperature Source: Oral Pulse Rate: 81 Respiratory Rate: 18 Blood Pressure: 99/61 BP Location: Left Arm Blood Pressure Position: Sitting - Height Height: 5 ft 7 in - Weight Weight: 56.699 kg Weight Measurement Method: Standing Scale Body Mass Index (BMI): 19.5 - Bowel Function Bowel Movement: No Urine Pregancy Test - Test Device Lot Number: [id number] Expiration Date: 01/16/19 - Control Horizontal Line in Upper Control Window?: Yes - Result Urine Test Results: Negative- NO Line Present Urine Drug Screen - Test Device Lot Number: [id number] Expiration Date: 04/18/19 - Control Is Test Valid: Yes - Results Drug Screen Negative: No Urine Drug Screen Results: THC-Marijuana
[2017-07-09 01:01] VITALS: BMI 19.5
[2017-07-09] MEDS ORDERED: NICOTINE POLACRILEX 2 MG GUM BC PRN (01:01)
[2017-07-09] MEDS ORDERED: MAGNESIUM CITRATE 300 ML BOTTLE PO PRN (01:01)
[2017-07-09] MEDS ORDERED: MAGNESIUM HYDROX 2400MG/30ML ORAL SUSPENSION 30 ML CUP PO PRN (01:01)
[2017-07-09] MEDS ORDERED: LOPERAMIDE HCL 2 MG CAPSULE PO PRN (01:01)
[2017-07-09] MEDS ORDERED: guaiFENesin/D-METHORPHAN HB 10 ML UNIT-DOSE CUPS PO PRN (01:01)
[2017-07-09] MEDS ORDERED: ACETAMINOPHEN 325 MG TABLET (FP) PO PRN (01:01)
[2017-07-09] MEDS ORDERED: MAG HYDROX/AL HYDROX/SIMETH 30 ML UNIT-DOSE CUP PO PRN (01:01)
[2017-07-09] MEDS ORDERED: MENTHOL/PHENOL 1 EACH UD MM PRN (01:01)
[2017-07-09] MEDS ORDERED: P-EPHED 60MG/TRIPROLIDI 2.5MG TABLET PO PRN (01:01)
[2017-07-09] MEDS: chlordiazePOXIDE HCL 25 MG CAPSULE PO PRN (02:11)
[2017-07-09] MEDS: IBUPROFEN 400 MG TABLET (FP) PO PRN (02:11)
[2017-07-09] MEDS: hydrOXYzine PAMOATE 50 MG CAPSULE (FP) PO PRN (02:11)
[2017-07-09] MEDS: chlordiazePOXIDE HCL 25 MG CAPSULE PO SCH ×4 (06:00→22:37)
--- NOTE | 2017-07-09 08:29 | CONSULT ---
[facility] Psychiatric Consult - Data Date of interview: 07/09/17 Admission source: [facility] Identifying data: This is 32 years old femal with no psychiatric hospitalization history, single, unemployed, living with family, with no PA, with long history of Alcoholism is here for detox, reports with drawal symptoms , reports otivation to contimus rehabilitations protocol as well. Substance Abuse History: Smoking history: Current every day smoker. Have you smoked in the past 12 months: Yes. Aproximately how many cigarettes per day: 4. Cigars Per Day: 0. Hx Chewing Tobacco Use: No. Initiated information on smoking cessation: Yes. 'Breaking Loose' booklet given: 07/09/17. - Substance & Tx. History. Hx Alcohol Use: Yes. Hx Substance Use: Yes. Substance Use Type : Alcohol, Marijuana. Hx Substance Use Treatment: Yes ([facility] - Substances Abused. LIQUOR. Route: Oral. Frequency: Daily. Amount used: 1 LITER. Age of first use: 17. Date of Last Use: 07/08/17. THC. Route: Smoking. Frequency: Daily. Amount used: 4 BLUNTS. Age of first use: 17. Date of Last Use: 07/08/17 Medical History: Gerd, Weight loosing history Psychiatric History: Reports history of ndepresisonl denies suicidal. homicidal ideation, reports no medications taking prior to admission Physical/Sexual Abuse/Trauma History: Denies Additional Comment: bservation. Detox Unit Care Protocol Mental Status Exam - Mental Status Exam Alert and Oriented to: Person Cognitive Function: Fair Patient Appearance: Well Groomed Mood: Sad Affect: Mood Congruent Patient Behavior: Cooperative Speech Pattern: Appropriate, Artificially Ventilated Voice Loudness: Normal Thought Process: Goal Oriented Thought Disorder: Being Controlled Hallucinations: Denies Suicidal Ideation: Denies Homicidal Ideation: Denies Insight/Judgement: Fair Sleep: Difficulty falling asleep Appetite: Weight loss Muscle strength/Tone: Normal Gait/Station: Normal Additional Comments: Observation. Detox Unit Care Protocol Psychiatric Findings - Problem List ([place] 1, 2,3) (1) Drug-induced mood disorder Current Visit: Yes Status: Acute (2) Alcohol dependence with uncomplicated withdrawal Current Visit: Yes Status: Chronic (3) Cannabis dependence Current Visit: Yes Status: Chronic (4) Alcohol-induced mood disorder Current Visit: No Status: Suspected - Initial Treatment Plan Initial Treatment Plan: Observation. Detox Unit Care Protocol
[2017-07-09] MEDS: NICOTINE 14 MG/24 HOURS TOPICAL PATCH TD SCH (10:31)
[2017-07-09] MEDS: PRENATAL VITAMINS W/ FOLIC ACID TABLET (FP) PO SCH (10:31)
--- NOTE | 2017-07-09 11:09 | EKG ---
Test Reason : Blood Pressure : / mmHG Vent. Rate : 065 BPM Atrial Rate : 065 BPM P-R Int : 182 ms QRS Dur : 088 ms QT Int : 388 ms P-R-T Axes : 064 048 048 degrees QTc Int : 403 ms NORMAL SINUS RHYTHM POSSIBLE LEFT ATRIAL ENLARGEMENT LEFT VENTRICULAR HYPERTROPHY WITH REPOLARIZATION ABNORMALITY ABNORMAL ECG WHEN COMPARED WITH ECG OF 20-APR-2017 22:22, NO SIGNIFICANT CHANGE WAS FOUND Confirmed by SVETA VELASQUEZ MD ([id number]) on 07/09/2017 11:08:52 AM Referred By: Confirmed By:SVETA VELASQUEZ MD
--- NOTE | 2017-07-09 11:16 | PN ---
BHS CIWA - CIWA Score Nausea/Vomitin-Mild Nausea/No Vomiting Muscle Tremors: 4-Moderate,w/Arms Extend Anxiety: 4-Mod. Anxious/Guarded Agitation: 4-Moderately Restless Paroxysmal Sweats: 1-Minimal Palms Moist Orientation: 0-Oriented Tacttile Disturbances: 1-Very Mild Itch/Numbness Auditory Disturbances: 0-None Visual Disturbances: 0-None Headache: 1-Very Mild CIWA-Ar Total Score: 16 BHS Progress Note (SOAP) Subjective: sweat tremor anxiety restlessness gi distress trouble sleeping Objective: 07/09/17 11:15 Vital Signs Temperature 98.2 F 07/09/17 09:45 Pulse Rate 77 07/09/17 09:45 Respiratory Rate 18 07/09/17 09:45 Blood Pressure 125/84 07/09/17 09:45 O2 Sat by Pulse Oximetry (%) lab not available Assessment: 07/09/17 11:16 withdrawal sx Plan: continue detox
[2017-07-09 14:49] LABS: HEMATOCRIT 36.6 % (32.4-45.2); HEMOGLOBIN 11.6 GM/dL (10.7-15.3); MCH 26.4 pg (25.7-33.7); MCHC 31.7 g/dl (32.0-36.0); MEAN CELL VOLUME 83.2 fl (80-96); MEAN PLT VOLUME 8.8 fl (7.5-11.1); PLATELET COUNT 295 K/MM3 (134-434); RBC 4.41 M/mm3 (3.60-5.2); RDW 15.8 % (11.6-15.6); WHITE BLOOD COUNT 8.5 K/mm3 (4.0-10.0)
[2017-07-09 14:57] LABS: ALBUMIN 4.4 g/dl (3.4-5.0); ALK PHOS 71 U/L (45-117); ANION GAP 11 (8-16); BLOOD UREA NITROGEN 20 mg/dL (7-18); CALCIUM 9.4 mg/dL (8.5-10.1); CHLORIDE 103 mmol/L (98-107); CO2 25 mmol/L (21-32); CREATININE 0.7 mg/dL (0.55-1.02); GLUCOSE,RANDOM 101 mg/dL (74-106); SODIUM 139 mmol/L (136-145)
[2017-07-09 14:58] LABS: BILIRUBIN,TOTAL 1.2 mg/dL (0.2-1.0); SGOT/AST 24 U/L (15-37); SGPT/ALT 17 U/L (12-78); TOT PROT 8.8 g/dl (6.4-8.2)
[2017-07-09 17:59] LABS: URINE APPEARANCE TURBID; URINE BILIRUBIN NEGATIVE (<2.0 mg/dL); URINE BLOOD NEGATIVE (NEGATIVE); URINE COLOR YELLOW; URINE GLUCOSE (UA) NEGATIVE (NEGATIVE); URINE KETONE NEGATIVE (NEGATIVE); URINE LEUK ESTERASE NEGATIVE (NEGATIVE); URINE NITRITE NEGATIVE (NEGATIVE); URINE UROBILINOGEN 4.0 E.U/dl mg/dL (0.2-1.0)
[2017-07-09 18:24] LABS: URINE PROTEIN 1+ (NEGATIVE)
[2017-07-09 21:35] LABS: EPI CELLS RARE /HPF (FEW); URINE MUCUS RARE
[2017-07-09] MEDS: MELATONIN 5 MG TABLETS PO PRN (22:36)
[2017-07-09] MEDS: THIAMINE HCL 100 MG TABLET (FP) PO SCH (22:37)
[2017-07-10] MEDS: chlordiazePOXIDE HCL 25 MG CAPSULE PO SCH ×4 (05:51→22:53)
[2017-07-10] MEDS: hydrOXYzine PAMOATE 50 MG CAPSULE (FP) PO PRN (08:51)
--- NOTE | 2017-07-10 10:04 | PN ---
S CIWA - CIWA Score Nausea/Vomitin-Mild Nausea/No Vomiting Muscle Tremors: 4-Moderate,w/Arms Extend Anxiety: 3 Agitation: 3 Paroxysmal Sweats: 1-Minimal Palms Moist Orientation: 0-Oriented Tacttile Disturbances: 1-Very Mild Itch/Numbness Auditory Disturbances: 0-None Visual Disturbances: 0-None Headache: 0-None Present CIWA-Ar Total Score: 13 BHS Progress Note (SOAP) Subjective: sweat tremor anxiety restlessness gi distress trouble sleep at night Objective: 07/10/17 10:05 Vital Signs Temperature 98.4 F 07/10/17 07:16 Pulse Rate 56 L 07/10/17 07:16 Respiratory Rate 16 07/10/17 07:16 Blood Pressure 127/72 07/10/17 07:16 O2 Sat by Pulse Oximetry (%) Laboratory Last Values WBC 8.5 K/mm3 (4.0-10.0) D 07/09/17 11:00 RBC 4.41 M/mm3 (3.60-5.2) 07/09/17 11:00 Hgb 11.6 GM/dL (10.7-15.3) 07/09/17 11:00 Hct 36.6 % (32.4-45.2) 07/09/17 11:00 MCV 83.2 fl (80-96) 07/09/17 11:00 MCH 26.4 pg (25.7-33.7) 07/09/17 11:00 MCHC 31.7 g/dl (32.0-36.0) L 07/09/17 11:00 RDW 15.8 % (11.6-15.6) H D 07/09/17 11:00 Plt Count 295 K/MM3 (134-434) 07/09/17 11:00 MPV 8.8 fl (7.5-11.1) 07/09/17 11:00 Sodium 139 mmol/L (136-145) 07/09/17 11:00 Potassium 4.0 mmol/L (3.5-5.1) 07/09/17 11:00 Chloride 103 mmol/L (98-107) 07/09/17 11:00 Carbon Dioxide 25 mmol/L (21-32) 07/09/17 11:00 Anion Gap 11 (8-16) 07/09/17 11:00 BUN 20 mg/dL (7-18) H 07/09/17 11:00 Creatinine 0.7 mg/dL (0.55-1.02) 07/09/17 11:00 Creat Clearance w eGFR > 60 (>60) 07/09/17 11:00 Random Glucose 101 mg/dL (74-106) 07/09/17 11:00 Calcium 9.4 mg/dL (8.5-10.1) 07/09/17 11:00 Total Bilirubin 1.2 mg/dL (0.2-1.0) H 07/09/17 11:00 AST 24 U/L (15-37) 07/09/17 11:00 ALT 17 U/L (12-78) 07/09/17 11:00 Alkaline Phosphatase 71 U/L (45-117) 07/09/17 11:00 Total Protein 8.8 g/dl (6.4-8.2) H 07/09/17 11:00 Albumin 4.4 g/dl (3.4-5.0) 07/09/17 11:00 Urine Color Yellow 07/09/17 13:00 Urine Appearance Turbid 07/09/17 13:00 Urine pH 6.0 (5.0-8.0) 07/09/17 13:00 Ur Specific [place] 1.034 (1.001-1.035) 07/09/17 13:00 Urine Protein 1+ (NEGATIVE) H 07/09/17 13:00 Urine Glucose (UA) Negative (NEGATIVE) 07/09/17 13:00 Urine Ketones Negative (NEGATIVE) 07/09/17 13:00 Urine Blood Negative (NEGATIVE) 07/09/17 13:00 Urine Nitrite Negative (NEGATIVE) 07/09/17 13:00 Urine Bilirubin Negative (<2.0 mg/dL) 07/09/17 13:00 Urine Urobilinogen 4.0 e.u/dl mg/dL (0.2-1.0) H 07/09/17 13:00 Ur Leukocyte Esterase Negative (NEGATIVE) 07/09/17 13:00 Urine WBC (Auto) None /hpf (3-5) 07/09/17 13:00 Urine RBC (Auto) 2 /hpf (0-3) 07/09/17 13:00 Ur Epithelial Cells Rare /HPF (FEW) 07/09/17 13:00 Urine Mucus Rare 07/09/17 13:00 RPR Titer Nonreactive (NONREACTIVE) 07/09/17 11:00 lab noted Assessment: 07/10/17 10:05 withdrawal sx Plan: continue detox
[2017-07-10] MEDS: PRENATAL VITAMINS W/ FOLIC ACID TABLET (FP) PO SCH (10:56)
[2017-07-10] MEDS: NICOTINE 14 MG/24 HOURS TOPICAL PATCH TD SCH (10:56)
[2017-07-10] MEDS: IBUPROFEN 400 MG TABLET (FP) PO PRN (10:57)
[2017-07-10] MEDS: chlordiazePOXIDE HCL 25 MG CAPSULE PO PRN (14:22)
--- NOTE | 2017-07-10 15:05 | PN ---
Psychiatric Progress Note Vital Signs: Vital Signs Period Temp Pulse Resp BP Sys/Boggs Pulse Ox Last 24 Hr 97.3 F-98.4 F 56-75 16-18 127-145/72-98 Date of Session: 07/10/17 Chief Complaint:: " I cant sleep." HPI: Pt. admitted to for alcohol dependence. ROS: Unremarkable Current Medications: Active Medications Generic Name Dose Route Start Last Admin Trade Name Freq PRN Reason Stop Dose Admin Acetaminophen 650 mg 07/09/17 01:01 07/09/17 10:32 Tylenol - PO 650 mg Q4H PRN Administration FEVER Al Hydroxide/Mg Hydroxide 30 ml 07/09/17 01:01 Mylanta Oral Suspension - PO Q6H PRN DYSPEPSIA Chlordiazepoxide HCl 25 mg 07/10/17 05:00 07/10/17 10:56 Librium - PO 07/10/17 23:01 25 mg [id number] JOSE ENRIQUE Administration Chlordiazepoxide HCl 15 mg 07/11/17 05:00 Librium - PO 07/11/17 23:01 [id number]-EXB JOSE ENRIQUE Chlordiazepoxide HCl 25 mg 07/09/17 01:01 07/10/17 14:22 Librium - PO 07/12/17 01:00 25 mg Q4H PRN Administration WITHDRAWAL(CONT SUBST) Chlordiazepoxide HCl 10 mg 07/12/17 05:00 Librium - PO 07/12/17 23:01 [id number]-WSR JOSE ENRIQUE Eucalyptus/Menthol/Phenol/Sorbitol 1 each 07/09/17 01:01 Cepastat Lozenge - MM Q4H PRN SORE THROAT Guaifenesin 10 ml 07/09/17 01:01 Robitussin Dm - PO Q6H PRN COUGH Hydroxyzine Pamoate 50 mg 07/09/17 01:01 07/10/17 08:51 Vistaril - PO 50 mg Q4H PRN Administration AGITATION Ibuprofen 400 mg 07/09/17 01:01 07/10/17 10:57 Motrin - PO 400 mg Q6H PRN Administration PAIN LEVEL 4-6 Loperamide HCl 4 mg 07/09/17 01:01 Imodium - PO Q6H PRN DIARRHEA Magnesium Citrate 300 ml 07/09/17 01:01 Citroma - PO Q48H PRN CONSTIPATION Magnesium Hydroxide 30 ml 07/09/17 01:01 Milk Of Magnesia - PO DAILY PRN CONSTIPATION Melatonin 5 mg 07/09/17 22:00 07/09/17 22:36 Melatonin PO 5 mg HS PRN Administration INSOMNIA Nicotine 14 mg 07/09/17 10:00 07/10/17 10:56 Nicoderm Patch - TD Not Given DAILY JOSE ENRIQUE Nicotine Polacrilex 2 mg 07/09/17 01:01 Nicorette Gum - BC Q2H PRN NICOTINE REPLACEMENT RX Multivit/Folic Acid/Iron 1 tab 07/09/17 10:00 07/10/17 10:56 Vitamins (Sjr) - PO 1 tab DAILY JOSE ENRIQUE Administration Pseudoephedrine/Triprolidine 1 combo 07/09/17 01:01 Actifed - PO TID PRN NASAL CONGESTION Thiamine HCl 100 mg 07/09/17 22:00 07/09/17 22:37 Vitamin B1 - PO 100 mg HS JOSE ENRIQUE Administration Medication(s) Change(s): Will add seroquel 50mg qhs Current Side Effect: No Lab tests ordered: No Lab tests reviewed: Yes Provider note:: Traveling Operator met with patient concerning psychiatric reconsultation. Dr. Ness's note read and appreciated. Pt. reports a diagnosis of depression and anxiety. Reports h/o OPD at [facility] but currently is not seeing a psychiatrist. Pt. was last admitted to detox in April of 2017 and was prescribed seroquel 50mg qhs with good effect. Today, patient is c/o difficulty sleeping and anxiety. Pt. informed that vistaril 50mg is ordered every four hours as needed. Pt. requesting seroquel 50mg. Reports most recently taking seroquel during her previous admission on 04/2017. Will order seroquel 50mg qhs. Benefits and side effects discussed. Verbal consent given. Will continue to monitor. Total face to face time:: 25 Mental Status Exam - Mental Status Exam Alert and Oriented to: Time, Place, Person Cognitive Function: Good Patient Appearance: Well Groomed Mood: Hopeful Affect: Mood Congruent Patient Behavior: Appropriate, Cooperative Speech Pattern: Clear, Appropriate Voice Loudness: Normal Thought Process: Goal Oriented Thought Disorder: Not Present Hallucinations: Denies Suicidal Ideation: Denies Homicidal Ideation: Denies Insight/Judgement: Poor Sleep: Poorly Appetite: Fair Muscle strength/Tone: Normal Gait/Station: Normal
[2017-07-10] MEDS ORDERED: QUEtiapine FUMARATE 50 MG TABLET PO SCH (22:00)
[2017-07-10] MEDS: THIAMINE HCL 100 MG TABLET (FP) PO SCH (22:52)
[2017-07-10] MEDS: MELATONIN 5 MG TABLETS PO PRN (22:54)
[2017-07-11] MEDS: chlordiazePOXIDE 5 MG CAPSULE PO SCH ×3 (06:28→17:53)
[2017-07-11] MEDS: IBUPROFEN 400 MG TABLET (FP) PO PRN (06:29)
[2017-07-11] MEDS: PRENATAL VITAMINS W/ FOLIC ACID TABLET (FP) PO SCH (10:20)
[2017-07-11] MEDS: NICOTINE 14 MG/24 HOURS TOPICAL PATCH TD SCH (10:22)
--- NOTE | 2017-07-11 11:08 | PN ---
BHS Progress Note (SOAP) Subjective: feeling better, less sweat no tremor denies gi distress Objective: 07/11/17 11:07 Vital Signs Temperature 97.7 F 07/11/17 10:47 Pulse Rate 96 H 07/11/17 10:47 Respiratory Rate 18 07/11/17 10:47 Blood Pressure 128/84 07/11/17 10:47 O2 Sat by Pulse Oximetry (%) Laboratory Last Values WBC 8.5 K/mm3 (4.0-10.0) D 07/09/17 11:00 RBC 4.41 M/mm3 (3.60-5.2) 07/09/17 11:00 Hgb 11.6 GM/dL (10.7-15.3) 07/09/17 11:00 Hct 36.6 % (32.4-45.2) 07/09/17 11:00 MCV 83.2 fl (80-96) 07/09/17 11:00 MCH 26.4 pg (25.7-33.7) 07/09/17 11:00 MCHC 31.7 g/dl (32.0-36.0) L 07/09/17 11:00 RDW 15.8 % (11.6-15.6) H D 07/09/17 11:00 Plt Count 295 K/MM3 (134-434) 07/09/17 11:00 MPV 8.8 fl (7.5-11.1) 07/09/17 11:00 Sodium 139 mmol/L (136-145) 07/09/17 11:00 Potassium 4.0 mmol/L (3.5-5.1) 07/09/17 11:00 Chloride 103 mmol/L (98-107) 07/09/17 11:00 Carbon Dioxide 25 mmol/L (21-32) 07/09/17 11:00 Anion Gap 11 (8-16) 07/09/17 11:00 BUN 20 mg/dL (7-18) H 07/09/17 11:00 Creatinine 0.7 mg/dL (0.55-1.02) 07/09/17 11:00 Creat Clearance w eGFR > 60 (>60) 07/09/17 11:00 Random Glucose 101 mg/dL (74-106) 07/09/17 11:00 Calcium 9.4 mg/dL (8.5-10.1) 07/09/17 11:00 Total Bilirubin 1.2 mg/dL (0.2-1.0) H 07/09/17 11:00 AST 24 U/L (15-37) 07/09/17 11:00 ALT 17 U/L (12-78) 07/09/17 11:00 Alkaline Phosphatase 71 U/L (45-117) 07/09/17 11:00 Total Protein 8.8 g/dl (6.4-8.2) H 07/09/17 11:00 Albumin 4.4 g/dl (3.4-5.0) 07/09/17 11:00 Urine Color Yellow 07/09/17 13:00 Urine Appearance Turbid 07/09/17 13:00 Urine pH 6.0 (5.0-8.0) 07/09/17 13:00 Ur Specific [place] 1.034 (1.001-1.035) 07/09/17 13:00 Urine Protein 1+ (NEGATIVE) H 07/09/17 13:00 Urine Glucose (UA) Negative (NEGATIVE) 07/09/17 13:00 Urine Ketones Negative (NEGATIVE) 07/09/17 13:00 Urine Blood Negative (NEGATIVE) 07/09/17 13:00 Urine Nitrite Negative (NEGATIVE) 07/09/17 13:00 Urine Bilirubin Negative (<2.0 mg/dL) 07/09/17 13:00 Urine Urobilinogen 4.0 e.u/dl mg/dL (0.2-1.0) H 07/09/17 13:00 Ur Leukocyte Esterase Negative (NEGATIVE) 07/09/17 13:00 Urine WBC (Auto) None /hpf (3-5) 07/09/17 13:00 Urine RBC (Auto) 2 /hpf (0-3) 07/09/17 13:00 Ur Epithelial Cells Rare /HPF (FEW) 07/09/17 13:00 Urine Mucus Rare 07/09/17 13:00 RPR Titer Nonreactive (NONREACTIVE) 07/09/17 11:00 lab noted Assessment: 07/11/17 11:07 mild withdrawal sx Plan: medically supervised detox
[2017-07-11 14:16] VITALS: BP 135/96; PULSE 79; TEMP 98.1
[2017-07-11] MEDS: chlordiazePOXIDE HCL 25 MG CAPSULE PO PRN (15:23)
[2017-07-12] MEDS ORDERED: chlordiazePOXIDE HCL 10 MG CAPSULE PO SCH (05:00)
== END 2017-07-11 18:28 | disposition other institution (70) | DRG 775 ==
LOC: YASAS 23:40 → Y6N 23:58
PROVIDERS: ADMIT Internal Medicine; ATTEND Internal Medicine
PROC: HZ2ZZZZ Detoxification Services for Substance Abuse Treatment (ICD-10-PCS; principal; 2017-07-08)
DX: F10.230 Alcohol dependence with withdrawal, uncomplicated (principal); F12.20 Cannabis dependence, uncomplicated; F19.24 Other psychoactive substance dependence with psychoactive substance-induced mood disorder; F10.24 Alcohol dependence with alcohol-induced mood disorder; F32.9 Major depressive disorder, single episode, unspecified; E86.0 Dehydration; K29.20 Alcoholic gastritis without bleeding; R20.2 Paresthesia of skin
CPT/HCPCS: 36415; 80053; 81003; 81015; 85027; 86593; 93005; 93010

== ENCOUNTER 2017-07-11 18:34 | Inpatient (IN) | payer OTHER ==
--- NOTE | 2017-07-11 13:51 | HP ---
[facility] Rehab Assess/Revision - Admission History Admitted to Rehab from: [facility] Date of Admission to Rehab: 07/11/17 - Findings Detox History & Physical reviewed: Yes Concur with findings: Yes Comments/Additional Findings: transferred from detox to rehab admission as per protocol Inpatient Rehab Admission - Initial Determination Are CD services needed?: Yes Free of communicable disease: Yes Not in need of hospitalization: Yes - Rehab Admission Criteria Previous failed treatment: Yes Poor recovery environment: Yes Comorbidities: No Lacks judgement: Yes Patient is meeting Inpatient Rehab admission criteria:: Yes
[~2017-07-11 18:34] MED LIST: LOPERAMIDE HCL 2 MG CAPSULE PO PRN; MAG HYDROX/AL HYDROX/SIMETH 30 ML UNIT-DOSE CUP PO PRN; MAGNESIUM CITRATE 300 ML BOTTLE PO PRN; MAGNESIUM HYDROX 2400MG/30ML ORAL SUSPENSION 30 ML CUP PO PRN; MENTHOL/PHENOL 1 EACH UD MM PRN; NICOTINE 14 MG/24 HOURS TOPICAL PATCH TD PRN; NICOTINE POLACRILEX 2 MG GUM BUC PRN; guaiFENesin/D-METHORPHAN HB 10 ML UNIT-DOSE CUPS PO PRN
[2017-07-11] MEDS: hydrOXYzine PAMOATE 50 MG CAPSULE (FP) PO PRN (21:45)
[2017-07-11] MEDS: THIAMINE HCL 100 MG TABLET (FP) PO SCH (21:45)
[2017-07-11] MEDS: QUEtiapine FUMARATE 50 MG TABLET PO SCH (21:45)
--- NOTE | 2017-07-11 21:49 | PN ---
S Progress Note Note: Psychiatric nurse practitioner note: Call received by RN requesting patient's medications. Patient was seen by quality analyst/technical writer while in detox. Chart reviewed. Will order seroquel 50mg qhs and vistaril 50mg q4h for anxiety.
[2017-07-11] MEDS ORDERED: MELATONIN 5 MG TABLETS PO PRN (22:00)
[2017-07-12] MEDS: PRENATAL VITAMINS W/ FOLIC ACID TABLET (FP) PO SCH (10:09)
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
[2017-07-12] MEDS: ESCITALOPRAM OXALATE 10 MG TABLET (FP) PO SCH (10:34)
[2017-07-12] MEDS: hydrOXYzine PAMOATE 50 MG CAPSULE (FP) PO PRN ×2 (10:34→15:57)
[2017-07-12] MEDS: THIAMINE HCL 100 MG TABLET (FP) PO SCH (21:34)
[2017-07-12] MEDS: QUEtiapine FUMARATE 50 MG TABLET PO SCH (21:34)
[2017-07-13] MEDS: PRENATAL VITAMINS W/ FOLIC ACID TABLET (FP) PO SCH (10:40)
[2017-07-13] MEDS: ESCITALOPRAM OXALATE 10 MG TABLET (FP) PO SCH (10:40)
[2017-07-13] MEDS: hydrOXYzine PAMOATE 50 MG CAPSULE (FP) PO PRN ×2 (10:41→17:57)
--- NOTE | 2017-07-13 13:31 | PN ---
[facility] Progress Note Note: patient reports that she was on 100 mg po hs and requested to increase medication, patient reports no side-effects from medications, will increase, continue to monitor progress.
[2017-07-13] MEDS: QUEtiapine FUMARATE 100 MG TABLET (FP) PO SCH (21:29)
[2017-07-13] MEDS: THIAMINE HCL 100 MG TABLET (FP) PO SCH (21:29)
[2017-07-14] MEDS: hydrOXYzine PAMOATE 50 MG CAPSULE (FP) PO PRN ×2 (06:43→13:35)
[2017-07-14] MEDS: PRENATAL VITAMINS W/ FOLIC ACID TABLET (FP) PO SCH (10:04)
[2017-07-14] MEDS: ESCITALOPRAM OXALATE 10 MG TABLET (FP) PO SCH (10:04)
[2017-07-14] MEDS: ACETAMINOPHEN 325 MG TABLET (FP) PO PRN (17:05)
[2017-07-14] MEDS: THIAMINE HCL 100 MG TABLET (FP) PO SCH (21:28)
[2017-07-14] MEDS: QUEtiapine FUMARATE 100 MG TABLET (FP) PO SCH (21:28)
[2017-07-15] MEDS: ESCITALOPRAM OXALATE 10 MG TABLET (FP) PO SCH (09:58)
[2017-07-15] MEDS: PRENATAL VITAMINS W/ FOLIC ACID TABLET (FP) PO SCH (09:58)
[2017-07-15] MEDS: hydrOXYzine PAMOATE 50 MG CAPSULE (FP) PO PRN (18:01)
[2017-07-15] MEDS: QUEtiapine FUMARATE 100 MG TABLET (FP) PO SCH (21:38)
[2017-07-15] MEDS: THIAMINE HCL 100 MG TABLET (FP) PO SCH (21:38)
[2017-07-16] MEDS: P-EPHED 60MG/TRIPROLIDI 2.5MG TABLET PO PRN (06:43)
[2017-07-16] MEDS: ACETAMINOPHEN 325 MG TABLET (FP) PO PRN (06:43)
[2017-07-16] MEDS: PRENATAL VITAMINS W/ FOLIC ACID TABLET (FP) PO SCH (10:17)
[2017-07-16] MEDS: ESCITALOPRAM OXALATE 10 MG TABLET (FP) PO SCH (10:17)
[2017-07-16] MEDS: hydrOXYzine PAMOATE 50 MG CAPSULE (FP) PO PRN ×2 (10:18→16:00)
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
[2017-07-16] MEDS: THIAMINE HCL 100 MG TABLET (FP) PO SCH (21:32)
[2017-07-16] MEDS: QUEtiapine FUMARATE 50 MG TABLET PO SCH (21:32)
[2017-07-17] MEDS: ESCITALOPRAM OXALATE 10 MG TABLET (FP) PO SCH (10:27)
[2017-07-17] MEDS: hydrOXYzine PAMOATE 50 MG CAPSULE (FP) PO PRN ×2 (10:27→15:45)
[2017-07-17] MEDS: PRENATAL VITAMINS W/ FOLIC ACID TABLET (FP) PO SCH (10:27)
[2017-07-17] MEDS: IBUPROFEN 400 MG TABLET (FP) PO PRN (18:21)
[2017-07-17] MEDS: QUEtiapine FUMARATE 50 MG TABLET PO SCH (21:26)
[2017-07-17] MEDS: THIAMINE HCL 100 MG TABLET (FP) PO SCH (21:26)
[2017-07-18] MEDS: ACETAMINOPHEN 325 MG TABLET (FP) PO PRN (06:25)
[2017-07-18] MEDS: PRENATAL VITAMINS W/ FOLIC ACID TABLET (FP) PO SCH (10:02)
[2017-07-18] MEDS: hydrOXYzine PAMOATE 50 MG CAPSULE (FP) PO PRN ×3 (10:02→21:30)
[2017-07-18] MEDS: ESCITALOPRAM OXALATE 10 MG TABLET (FP) PO SCH (10:02)
[2017-07-18] MEDS ORDERED: COLLOIDAL OATMEAL 1 BAR EACH TP PRN (11:41)
[2017-07-18] MEDS: QUEtiapine FUMARATE 50 MG TABLET PO SCH (21:30)
[2017-07-18] MEDS: THIAMINE HCL 100 MG TABLET (FP) PO SCH (21:31)
[2017-07-19] MEDS: ESCITALOPRAM OXALATE 10 MG TABLET (FP) PO SCH (10:19)
[2017-07-19] MEDS: hydrOXYzine PAMOATE 50 MG CAPSULE (FP) PO PRN ×3 (10:19→21:31)
[2017-07-19] MEDS: PRENATAL VITAMINS W/ FOLIC ACID TABLET (FP) PO SCH (10:19)
[2017-07-19] MEDS: P-EPHED 60MG/TRIPROLIDI 2.5MG TABLET PO PRN (10:20)
[2017-07-19] MEDS: ACETAMINOPHEN 325 MG TABLET (FP) PO PRN (15:32)
[2017-07-19] MEDS: QUEtiapine FUMARATE 50 MG TABLET PO SCH (21:31)
[2017-07-19] MEDS: THIAMINE HCL 100 MG TABLET (FP) PO SCH (21:32)
[2017-07-20] MEDS: ACETAMINOPHEN 325 MG TABLET (FP) PO PRN (06:33)
[2017-07-20] MEDS: hydrOXYzine PAMOATE 50 MG CAPSULE (FP) PO PRN ×4 (06:34→21:38)
[2017-07-20] MEDS: PRENATAL VITAMINS W/ FOLIC ACID TABLET (FP) PO SCH (10:41)
[2017-07-20] MEDS: ESCITALOPRAM OXALATE 10 MG TABLET (FP) PO SCH (10:41)
[2017-07-20] MEDS: P-EPHED 60MG/TRIPROLIDI 2.5MG TABLET PO PRN (10:43)
[2017-07-20] MEDS: IBUPROFEN 400 MG TABLET (FP) PO PRN (16:00)
[2017-07-20] MEDS: QUEtiapine FUMARATE 50 MG TABLET PO SCH (21:38)
[2017-07-20] MEDS: THIAMINE HCL 100 MG TABLET (FP) PO SCH (21:38)
[2017-07-21] MEDS: ACETAMINOPHEN 325 MG TABLET (FP) PO PRN ×2 (10:27→16:19)
[2017-07-21] MEDS: ESCITALOPRAM OXALATE 10 MG TABLET (FP) PO SCH (10:27)
[2017-07-21] MEDS: PRENATAL VITAMINS W/ FOLIC ACID TABLET (FP) PO SCH (10:27)
[2017-07-21] MEDS: hydrOXYzine PAMOATE 50 MG CAPSULE (FP) PO PRN ×3 (10:27→23:09)
[2017-07-21] MEDS: THIAMINE HCL 100 MG TABLET (FP) PO SCH (21:44)
[2017-07-21] MEDS: QUEtiapine FUMARATE 50 MG TABLET PO SCH (21:44)
[2017-07-22] MEDS: hydrOXYzine PAMOATE 50 MG CAPSULE (FP) PO PRN (10:26)
[2017-07-22] MEDS: PRENATAL VITAMINS W/ FOLIC ACID TABLET (FP) PO SCH (10:26)
[2017-07-22] MEDS: ESCITALOPRAM OXALATE 10 MG TABLET (FP) PO SCH (10:26)
[2017-07-22] MEDS: P-EPHED 60MG/TRIPROLIDI 2.5MG TABLET PO PRN ×2 (10:27→21:30)
[2017-07-22] MEDS: THIAMINE HCL 100 MG TABLET (FP) PO SCH (21:29)
[2017-07-22] MEDS: QUEtiapine FUMARATE 50 MG TABLET PO SCH (21:29)
[2017-07-23 07:25] VITALS: TEMP 98.2
[2017-07-23] MEDS: ESCITALOPRAM OXALATE 10 MG TABLET (FP) PO SCH (09:54)
[2017-07-23] MEDS: hydrOXYzine PAMOATE 50 MG CAPSULE (FP) PO PRN ×3 (09:54→21:46)
[2017-07-23] MEDS: PRENATAL VITAMINS W/ FOLIC ACID TABLET (FP) PO SCH (09:54)
[2017-07-23] MEDS: THIAMINE HCL 100 MG TABLET (FP) PO SCH (21:46)
[2017-07-23] MEDS: QUEtiapine FUMARATE 50 MG TABLET PO SCH (21:46)
[2017-07-24] MEDS: ESCITALOPRAM OXALATE 10 MG TABLET (FP) PO SCH (10:11)
[2017-07-24] MEDS: PRENATAL VITAMINS W/ FOLIC ACID TABLET (FP) PO SCH (10:12)
[2017-07-24] MEDS: hydrOXYzine PAMOATE 50 MG CAPSULE (FP) PO PRN ×2 (10:12→21:47)
[2017-07-24] MEDS: QUEtiapine FUMARATE 50 MG TABLET PO SCH (21:46)
[2017-07-24] MEDS: THIAMINE HCL 100 MG TABLET (FP) PO SCH (21:46)
[2017-07-25 07:07] VITALS: BP 118/86; PULSE 73
[2017-07-25] MEDS: PRENATAL VITAMINS W/ FOLIC ACID TABLET (FP) PO SCH (09:00)
[2017-07-25] MEDS: ESCITALOPRAM OXALATE 10 MG TABLET (FP) PO SCH (09:00)
[2017-07-25] MEDS: hydrOXYzine PAMOATE 50 MG CAPSULE (FP) PO PRN (09:01)
--- NOTE | 2017-07-25 09:23 | PN ---
Psychiatric Progress Note Vital Signs: Vital Signs Period Temp Pulse Resp BP Sys/Boggs Pulse Ox Last 24 Hr 98.2 F 73 16-18 118/86 Date of Session: 07/25/17 Chief Complaint:: Discharge visit HPI: Patient addressed Alcohol ,Cannabis dependence comorbid with Substance induced mood/sleep disorder. Current Medications: Active Medications Generic Name Dose Route Start Last Admin Trade Name Freq PRN Reason Stop Dose Admin Acetaminophen 650 mg 07/11/17 13:52 07/21/17 16:19 Tylenol - PO 650 mg Q4H PRN Administration FEVER Al Hydroxide/Mg Hydroxide 30 ml 07/11/17 13:52 Mylanta Oral Suspension - PO Q6H PRN DYSPEPSIA Colloidal Oatmeal 1 applic 07/18/17 11:41 07/18/17 13:12 Aveeno Soap - TP 1 bar DAILY PRN Administration HYGEINE Escitalopram Oxalate 10 mg 07/12/17 10:30 07/24/17 10:11 Lexapro - PO 10 mg DAILY JOSE ENRIQUE Administration Eucalyptus/Menthol/Phenol/Sorbitol 1 each 07/11/17 13:52 Cepastat Lozenge - MM Q4H PRN SORE THROAT Guaifenesin 10 ml 07/11/17 13:52 Robitussin Dm - PO Q6H PRN COUGH Hydroxyzine Pamoate 50 mg 07/11/17 21:41 07/24/17 21:47 Vistaril - PO 50 mg Q4H PRN Administration ANXIETY Ibuprofen 400 mg 07/11/17 13:52 07/20/17 16:00 Motrin - PO 400 mg Q6H PRN Administration Pain Level 4-6 Loperamide HCl 4 mg 07/11/17 13:52 Imodium - PO Q6H PRN DIARRHEA Magnesium Citrate 300 ml 07/11/17 13:52 Citroma - PO Q48H PRN CONSTIPATION Magnesium Hydroxide 30 ml 07/11/17 13:52 Milk Of Magnesia - PO DAILY PRN CONSTIPATION Melatonin 5 mg 07/11/17 22:00 Melatonin PO HS PRN INSOMNIA Nicotine 14 mg 07/11/17 13:52 Nicoderm Patch - TD DAILY PRN WITHDRAWAL(CONT SUBST) Nicotine Polacrilex 2 mg 07/11/17 13:52 Nicorette Gum - BUC Q2H PRN NICOTINE REPLACEMENT RX Multivit/Folic Acid/Iron 1 tab 07/12/17 10:00 07/24/17 10:12 Vitamins (Sjr) - PO 1 tab DAILY JOSE ENRIQUE Administration Pseudoephedrine/Triprolidine 1 combo 07/11/17 13:52 07/22/17 21:30 Actifed - PO 1 combo TID PRN Administration NASAL CONGESTION Quetiapine Fumarate 150 mg 07/16/17 22:00 07/24/17 21:46 Seroquel - PO 150 mg HS JOSE ENRIQUE Administration Thiamine HCl 100 mg 07/11/17 22:00 07/24/17 21:46 Vitamin B1 - PO 100 mg HS JOSE ENRIQUE Administration Current Side Effect: No Lab tests ordered: No Lab tests reviewed: Yes Provider note:: Patient completed this program today..She has met her treatnet goals and will continue to address her issues on outpatient basis at [facility].patient reports finding that current medications :Lexapro 10 mg po daily, Seroquel 150 mg po hs help to cope with depressed mood,anxiety,sleeping difficulties.Scripts for 30 days provided.Therapy provided focusing on relapse prevention.Coping skills,support utilization to maintain recovery has been discussedd as well. Patient is stable for discharge today. Total face to face time:: 30 Mental Status Exam - Mental Status Exam Alert and Oriented to: Time, Place, Person Cognitive Function: Grossly Intact Patient Appearance: Well Groomed Mood: Euthymic Affect: Mood Congruent, Labile Patient Behavior: Cooperative Speech Pattern: Clear Voice Loudness: Normal Thought Process: Goal Oriented Thought Disorder: Not Present Hallucinations: Denies Suicidal Ideation: Denies Homicidal Ideation: Denies Insight/Judgement: Fair Sleep: Fair Appetite: Good Muscle strength/Tone: Normal Gait/Station: Normal Psychiatric Treatment Plan - Problem List (3) Head injury due to trauma Qualifiers: Encounter type: initial encounter Qualified Code(s): S09.90XA - Unspecified injury of head, initial encounter (4) Migraine headache Qualifiers: Migraine type: other Status migrainosus presence: without status migrainosus Intractability: not intractable Qualified Code(s): G43.809 - Other migraine, not intractable, without status migrainosus (7) Gastritis Qualifiers: Gastritis type: alcoholic Chronicity: acute Gastritis bleeding: without bleeding Qualified Code(s): K29.20 - Alcoholic gastritis without bleeding (8) Nicotine dependence Qualifiers: Nicotine product type: cigarettes Substance use status: uncomplicated Qualified Code(s): F17.210 - Nicotine dependence, cigarettes, uncomplicated
== END 2017-07-25 10:16 | disposition home or self-care (01) | DRG 58 ==
LOC: YASAS 18:34 → Y3E 18:39
PROVIDERS: ADMIT Psychiatry & Neurology Psychiatry; ATTEND Psychiatry & Neurology Psychiatry
PROC: HZ42ZZZ Group Counseling for Substance Abuse Treatment, Cognitive-Behavioral (ICD-10-PCS; principal; 2017-07-11)
DX: F10.282 Alcohol dependence with alcohol-induced sleep disorder (principal); F12.20 Cannabis dependence, uncomplicated; F17.210 Nicotine dependence, cigarettes, uncomplicated; F19.24 Other psychoactive substance dependence with psychoactive substance-induced mood disorder; F32.9 Major depressive disorder, single episode, unspecified; G43.809 Other migraine, not intractable, without status migrainosus; K29.20 Alcoholic gastritis without bleeding; R20.2 Paresthesia of skin

== ENCOUNTER 2020-07-02 22:27 | Inpatient (IN) | payer OTHER ==
[2020-07-02 23:56] VITALS: BMI 17.4
[2020-07-03] MEDS ORDERED: P-EPHED 60MG/TRIPROLIDI 2.5MG TABLET PO PRN (00:02)
[2020-07-03] MEDS ORDERED: METHOCARBAMOL 500 MG TABLET PO PRN (00:02)
[2020-07-03] MEDS ORDERED: guaiFENesin 200 MG/10 ML 10 ML UNIT-DOSE CUPS PO PRN (00:02)
[2020-07-03] MEDS ORDERED: MAGNESIUM HYDROX 2400MG/30ML ORAL SUSPENSION 30 ML CUP PO PRN (00:02)
[2020-07-03] MEDS ORDERED: MAGNESIUM CITRATE 300 ML BOTTLE PO PRN (00:02)
[2020-07-03] MEDS ORDERED: NICOTINE POLACRILEX 2 MG GUM BUC PRN (00:02)
[2020-07-03] MEDS ORDERED: DICYCLOMINE HCL 10 MG CAPSULE PO PRN (00:02)
[2020-07-03] MEDS ORDERED: MENTHOL/PHENOL 1 EACH UD MM PRN (00:02)
[2020-07-03] MEDS ORDERED: hydrOXYzine PAMOATE 25 MG CAPSULE (FP) PO PRN (00:02)
[2020-07-03] MEDS ORDERED: IBUPROFEN 400 MG TABLET (FP) PO PRN (00:02)
[2020-07-03] MEDS ORDERED: BISMUTH SUBSALICYLATE 524 MG/30 ML UD PO PRN (00:02)
[2020-07-03] MEDS ORDERED: ACETAMINOPHEN 325 MG TABLET (FP) PO PRN ×2 (00:02)
[2020-07-03] MEDS ORDERED: MAG HYDROX/AL HYDROX/SIMETH 30 ML UNIT-DOSE CUP PO PRN (00:02)
[2020-07-03] MEDS ORDERED: ONDANSETRON *ODT* 4 MG TABLET SL PRN (00:02)
[2020-07-03] MEDS ORDERED: ACETAMINOPHEN 325 MG TABLET (FP) ONE (05:29)
[2020-07-03] MEDS ORDERED: TUBERCULIN PPD 5 TU/0.1ML SYRINGE (IN PATIENT USE ONLY) ID ONE (08:47)
[2020-07-03 10:11] LABS: HEMATOCRIT 30.9 % (32.4-45.2); HEMOGLOBIN 10.1 GM/dL (10.7-15.3); MCH 25.9 pg (25.7-33.7); MCHC 32.8 g/dl (32.0-36.0); MEAN PLT VOLUME 7.9 fl (7.5-11.1); PLATELET COUNT 411 K/MM3 (134-434); RBC 3.91 M/mm3 (3.60-5.2); RDW 15.6 % (11.6-15.6); WHITE BLOOD COUNT 11.7 K/mm3 (4.0-10.0)
[2020-07-03 10:29] LABS: ALBUMIN 3.5 g/dl (3.4-5.0); CALCIUM 9.4 mg/dL (8.5-10.1)
[2020-07-03 10:30] LABS: BLOOD UREA NITROGEN 21.8 mg/dL (7-18)
[2020-07-03 10:32] LABS: CREATININE 0.5 mg/dL (0.55-1.3)
[2020-07-03 10:33] LABS: TOT PROT 8.6 g/dl (6.4-8.2)
[2020-07-03] MEDS: PRENATAL VITAMINS W/ FOLIC ACID TABLET (FP) PO SCH (10:40)
[2020-07-03] MEDS: CELECOXIB 100 MG CAPSULE PO SCH ×2 (12:10→22:42)
[2020-07-03] MEDS: PANTOPRAZOLE 40 MG TABLET PO SCH (12:10)
[2020-07-03] MEDS: NICOTINE 14 MG/24 HOURS TOPICAL PATCH TD SCH (12:10)
[2020-07-03] MEDS: QUEtiapine FUMARATE 50 MG TABLET PO SCH (22:41)
[2020-07-03] MEDS: MELATONIN 5 MG TABLETS PO SCH (22:42)
[2020-07-03] MEDS: THIAMINE HCL 100 MG TABLET (FP) PO SCH (22:42)
[2020-07-04] MEDS: PRENATAL VITAMINS W/ FOLIC ACID TABLET (FP) PO SCH (10:38)
[2020-07-04] MEDS: CELECOXIB 100 MG CAPSULE PO SCH ×2 (10:38→22:07)
[2020-07-04] MEDS: PANTOPRAZOLE 40 MG TABLET PO SCH (10:38)
[2020-07-04] MEDS: NICOTINE 14 MG/24 HOURS TOPICAL PATCH TD SCH (10:38)
[2020-07-04] MEDS: QUEtiapine FUMARATE 50 MG TABLET PO SCH (22:06)
[2020-07-04] MEDS: MELATONIN 5 MG TABLETS PO SCH (22:06)
[2020-07-04] MEDS: THIAMINE HCL 100 MG TABLET (FP) PO SCH (22:06)
[2020-07-05 09:50] VITALS: BP 123/92; PULSE 100; TEMP 97.3
== END 2020-07-05 09:21 | disposition home or self-care (01) | DRG 774 ==
LOC: YASAS 22:27 → Y3N 07-03 08:37
PROVIDERS: ADMIT Allergy & Immunology; ATTEND Allergy & Immunology
PROC: HZ2ZZZZ Detoxification Services for Substance Abuse Treatment (ICD-10-PCS; principal; 2020-07-03)
DX: F10.230 Alcohol dependence with withdrawal, uncomplicated (principal); F14.20 Cocaine dependence, uncomplicated; F16.10 Hallucinogen abuse, uncomplicated; F12.20 Cannabis dependence, uncomplicated; F17.210 Nicotine dependence, cigarettes, uncomplicated; F32.9 Major depressive disorder, single episode, unspecified; F10.282 Alcohol dependence with alcohol-induced sleep disorder; F19.24 Other psychoactive substance dependence with psychoactive substance-induced mood disorder; D72.829 Elevated white blood cell count, unspecified; G47.00 Insomnia, unspecified; K29.20 Alcoholic gastritis without bleeding; L30.9 Dermatitis, unspecified; M32.9 Systemic lupus erythematosus, unspecified; R63.4 Abnormal weight loss; Z68.1 Body mass index [BMI] 19.9 or less, adult
CPT/HCPCS: 36415; 80053; 81025; 85027; 86780; 93005; 93010; C9803; U0003; U0005

== ENCOUNTER 2021-05-10 17:20 | Inpatient (IN) | payer OTHER ==
[2021-05-10 19:24] VITALS: BMI 18.0
[2021-05-10] MEDS ORDERED: BISMUTH SUBSALICYLATE 524 MG/30 ML PO PRN (20:04)
[2021-05-10] MEDS ORDERED: chlordiazePOXIDE HCL 25 MG CAPSULE PO PRN (20:04)
[2021-05-10] MEDS ORDERED: MAGNESIUM CITRATE 300 ML BOTTLE PO PRN (20:04)
[2021-05-10] MEDS ORDERED: ACETAMINOPHEN 325 MG TABLET (FP) PO PRN (20:04)
[2021-05-10] MEDS ORDERED: MENTHOL/PHENOL 1 EACH UD MM PRN (20:04)
[2021-05-10] MEDS ORDERED: MAG HYDROX/AL HYDROX/SIMETH 30 ML UNIT-DOSE CUP PO PRN (20:04)
[2021-05-10] MEDS ORDERED: MAGNESIUM HYDROX 2400MG/30ML ORAL SUSPENSION 30 ML CUP PO PRN (20:04)
[2021-05-10] MEDS ORDERED: NICOTINE POLACRILEX 2 MG GUM BUC PRN (20:04)
[2021-05-10] MEDS ORDERED: ONDANSETRON *ODT* 4 MG TABLET SL PRN (20:04)
[2021-05-10] MEDS ORDERED: LOPERAMIDE HCL 2 MG CAPSULE PO PRN (20:04)
[2021-05-10] MEDS: THIAMINE HCL 100 MG TABLET (FP) PO SCH (22:27)
[2021-05-10] MEDS: chlordiazePOXIDE HCL 25 MG CAPSULE PO SCH (22:28)
[2021-05-10] MEDS: MELATONIN 5 MG TABLETS PO SCH (22:29)
[2021-05-10] MEDS: IBUPROFEN 400 MG TABLET (FP) PO PRN (22:29)
[2021-05-11] MEDS: METHOCARBAMOL 500 MG TABLET PO PRN ×3 (02:44→18:36)
[2021-05-11] MEDS: chlordiazePOXIDE HCL 25 MG CAPSULE PO SCH ×4 (05:50→22:14)
[2021-05-11] MEDS: hydrOXYzine PAMOATE 25 MG CAPSULE (FP) PO PRN ×4 (05:50→22:14)
[2021-05-11] MEDS: IBUPROFEN 400 MG TABLET (FP) PO PRN (05:52)
[2021-05-11] MEDS: PRENATAL VITAMINS W/ FOLIC ACID TABLET (FP) PO SCH (10:07)
[2021-05-11] MEDS: NICOTINE 14 MG/24 HOURS TOPICAL PATCH TD SCH (10:09)
[2021-05-11] MEDS: FAMOTIDINE 20 MG TABLET PO SCH (12:21)
[2021-05-11 12:47] LABS: HEMATOCRIT 33.1 % (32.4-45.2); HEMOGLOBIN 10.2 GM/dL (10.7-15.3); MCH 24.1 pg (25.7-33.7); MCHC 30.7 g/dl (32.0-36.0); MEAN CELL VOLUME 78.5 fl (80-96); MEAN PLT VOLUME 8.6 fl (7.5-11.1); PLATELET COUNT 324 10^3/uL (134-434); RBC 4.22 M/mm3 (3.60-5.2); RDW 18.9 % (11.6-15.6); WHITE BLOOD COUNT 9.3 K/mm3 (4.0-10.0)
[2021-05-11 13:19] LABS: BLOOD UREA NITROGEN 19.3 mg/dL (7-18); CALCIUM 9.4 mg/dL (8.5-10.1)
[2021-05-11 13:20] LABS: ALBUMIN 3.6 g/dl (3.4-5.0)
[2021-05-11] MEDS: TRIAMCINOLONE ACET 0.1% CREAM 15 GM TUBE TP SCH ×2 (13:21→22:57)
[2021-05-11 13:22] LABS: CREATININE 0.6 mg/dL (0.55-1.3)
[2021-05-11 13:23] LABS: BILIRUBIN,TOTAL 0.7 mg/dL (0.2-1); TOT PROT 8.5 g/dl (6.4-8.2)
[2021-05-11] MEDS: THIAMINE HCL 100 MG TABLET (FP) PO SCH (22:14)
[2021-05-11] MEDS: MELATONIN 5 MG TABLETS PO SCH (22:14)
[2021-05-11] MEDS: MIRTAZAPINE 15 MG TABLET (FP) PO SCH (22:14)
[2021-05-11] MEDS: ACETAMINOPHEN 325 MG TABLET (FP) PO PRN (22:16)
[2021-05-12] MEDS: METHOCARBAMOL 500 MG TABLET PO PRN ×3 (01:59→22:16)
[2021-05-12] MEDS: IBUPROFEN 400 MG TABLET (FP) PO PRN (01:59)
[2021-05-12] MEDS: chlordiazePOXIDE HCL 25 MG CAPSULE PO SCH ×4 (06:11→22:19)
[2021-05-12] MEDS ORDERED: COLLOIDAL OATMEAL 1 BAR EACH TP PRN (09:52)
[2021-05-12] MEDS ORDERED: predniSONE 20 MG TABLET (UD) PO ONE (09:54)
[2021-05-12 10:08] LABS: SARS-CoV-2 NAA Not Detected (Not Detected)
[2021-05-12] MEDS: hydrOXYzine PAMOATE 25 MG CAPSULE (FP) PO PRN ×3 (10:21→22:16)
[2021-05-12] MEDS: FAMOTIDINE 20 MG TABLET PO SCH (10:21)
[2021-05-12] MEDS: PRENATAL VITAMINS W/ FOLIC ACID TABLET (FP) PO SCH (10:21)
[2021-05-12] MEDS: TRIAMCINOLONE ACET 0.1% CREAM 15 GM TUBE TP SCH ×2 (10:22→23:50)
[2021-05-12] MEDS: NICOTINE 14 MG/24 HOURS TOPICAL PATCH TD SCH (10:28)
[2021-05-12] MEDS: LIDOCAINE 5% TOPICAL PATCH TP SCH (10:32)
[2021-05-12] MEDS: ACETAMINOPHEN 325 MG TABLET (FP) PO PRN (18:09)
[2021-05-12] MEDS: MIRTAZAPINE 15 MG TABLET (FP) PO SCH (22:16)
[2021-05-12] MEDS: THIAMINE HCL 100 MG TABLET (FP) PO SCH (22:16)
[2021-05-12] MEDS: MELATONIN 5 MG TABLETS PO SCH (22:16)
[2021-05-12] MEDS: LIDOCAINE PATCH REMOVAL MC SCH (23:50)
[2021-05-13] MEDS ORDERED: chlordiazePOXIDE HCL 10 MG CAPSULE PO PRN
[2021-05-13] MEDS: IBUPROFEN 400 MG TABLET (FP) PO PRN (04:01)
[2021-05-13] MEDS: METHOCARBAMOL 500 MG TABLET PO PRN ×2 (05:42→14:01)
[2021-05-13] MEDS: chlordiazePOXIDE HCL 10 MG CAPSULE PO SCH ×4 (05:42→23:06)
[2021-05-13] MEDS ORDERED: predniSONE 10 MG TABLET (UD) PO ONE (10:00)
[2021-05-13] MEDS: hydrOXYzine PAMOATE 25 MG CAPSULE (FP) PO PRN ×2 (10:21→14:01)
[2021-05-13] MEDS: FAMOTIDINE 20 MG TABLET PO SCH (10:21)
[2021-05-13] MEDS: PRENATAL VITAMINS W/ FOLIC ACID TABLET (FP) PO SCH (10:21)
[2021-05-13] MEDS: LIDOCAINE 5% TOPICAL PATCH TP SCH (10:22)
[2021-05-13] MEDS: TRIAMCINOLONE ACET 0.1% CREAM 15 GM TUBE TP SCH ×2 (10:23→23:05)
[2021-05-13] MEDS: NICOTINE 10 MG CARTRIDGE (INHALER) IH SCH (10:24)
[2021-05-13] MEDS: hydrOXYzine PAMOATE 50 MG CAPSULE (FP) PO PRN (20:25)
[2021-05-13] MEDS: LIDOCAINE PATCH REMOVAL MC SCH (23:06)
[2021-05-13] MEDS: MELATONIN 5 MG TABLETS PO SCH (23:07)
[2021-05-13] MEDS: MIRTAZAPINE 15 MG TABLET (FP) PO SCH (23:07)
[2021-05-13] MEDS: THIAMINE HCL 100 MG TABLET (FP) PO SCH (23:07)
[2021-05-14] MEDS: IBUPROFEN 400 MG TABLET (FP) PO PRN (03:29)
[2021-05-14] MEDS: chlordiazePOXIDE HCL 10 MG CAPSULE PO SCH ×2 (05:30→18:10)
[2021-05-14] MEDS: METHOCARBAMOL 500 MG TABLET PO PRN ×3 (05:31→22:24)
[2021-05-14] MEDS: hydrOXYzine PAMOATE 50 MG CAPSULE (FP) PO PRN ×3 (05:35→22:24)
[2021-05-14] MEDS ORDERED: predniSONE 20 MG TABLET (UD) PO ONE (10:00)
[2021-05-14] MEDS: PRENATAL VITAMINS W/ FOLIC ACID TABLET (FP) PO SCH (10:06)
[2021-05-14] MEDS: LIDOCAINE 5% TOPICAL PATCH TP SCH (10:10)
[2021-05-14] MEDS: FAMOTIDINE 20 MG TABLET PO SCH (10:10)
[2021-05-14] MEDS: TRIAMCINOLONE ACET 0.1% CREAM 15 GM TUBE TP SCH ×2 (10:10→22:22)
[2021-05-14] MEDS: NICOTINE 10 MG CARTRIDGE (INHALER) IH SCH (10:11)
[2021-05-14] MEDS: MIRTAZAPINE 15 MG TABLET (FP) PO SCH (22:21)
[2021-05-14] MEDS: MELATONIN 5 MG TABLETS PO SCH (22:21)
[2021-05-14] MEDS: THIAMINE HCL 100 MG TABLET (FP) PO SCH (22:21)
[2021-05-14] MEDS: LIDOCAINE PATCH REMOVAL MC SCH (22:22)
[2021-05-15] MEDS: IBUPROFEN 400 MG TABLET (FP) PO PRN (02:39)
[2021-05-15] MEDS ORDERED: chlordiazePOXIDE HCL 10 MG CAPSULE PO ONE (05:00)
[2021-05-15] MEDS ORDERED: predniSONE 10 MG TABLET (UD) PO ONE (08:00)
[2021-05-15] MEDS: METHOCARBAMOL 500 MG TABLET PO PRN (10:07)
[2021-05-15] MEDS: hydrOXYzine PAMOATE 50 MG CAPSULE (FP) PO PRN (10:08)
[2021-05-15] MEDS: TRIAMCINOLONE ACET 0.1% CREAM 15 GM TUBE TP SCH (10:52)
[2021-05-15] MEDS: NICOTINE 10 MG CARTRIDGE (INHALER) IH SCH (10:53)
[2021-05-15] MEDS: LIDOCAINE 5% TOPICAL PATCH TP SCH (10:53)
[2021-05-15] MEDS: FAMOTIDINE 20 MG TABLET PO SCH (10:54)
[2021-05-15] MEDS: PRENATAL VITAMINS W/ FOLIC ACID TABLET (FP) PO SCH (10:54)
[2021-05-15 17:11] VITALS: BP 121/82; PULSE 89; TEMP 96.9
== END 2021-05-15 18:04 | disposition other institution (70) | DRG 774 ==
LOC: YASAS 17:20 → Y6N 20:24
PROVIDERS: ADMIT Allergy & Immunology; ATTEND Allergy & Immunology
PROC: HZ2ZZZZ Detoxification Services for Substance Abuse Treatment (ICD-10-PCS; principal; 2021-05-10)
DX: F10.230 Alcohol dependence with withdrawal, uncomplicated (principal); F14.20 Cocaine dependence, uncomplicated; F12.20 Cannabis dependence, uncomplicated; F17.210 Nicotine dependence, cigarettes, uncomplicated; F19.280 Other psychoactive substance dependence with psychoactive substance-induced anxiety disorder; F39 Unspecified mood [affective] disorder; D64.9 Anemia, unspecified; G43.109 Migraine with aura, not intractable, without status migrainosus; K29.20 Alcoholic gastritis without bleeding; K21.9 Gastro-esophageal reflux disease without esophagitis; L30.9 Dermatitis, unspecified; M06.9 Rheumatoid arthritis, unspecified; Z86.59 Personal history of other mental and behavioral disorders; Z91.011 Allergy to milk products; Z56.0 Unemployment, unspecified; Z59.00 Homelessness unspecified
CPT/HCPCS: 36415; 80053; 85027; 86780; 87811; 93005; 93010; C9803; U0003; U0005

== ENCOUNTER 2021-05-15 16:16 | Inpatient (IN) | payer OTHER ==
[2021-05-15] MEDS ORDERED: MAGNESIUM CITRATE 300 ML BOTTLE PO PRN (16:52)
[2021-05-15] MEDS ORDERED: MAGNESIUM HYDROX 2400MG/30ML ORAL SUSPENSION 30 ML CUP PO PRN (16:52)
[2021-05-15] MEDS ORDERED: guaiFENesin 200 MG/10 ML 10 ML UNIT-DOSE CUPS PO PRN (16:52)
[2021-05-15] MEDS ORDERED: MAG HYDROX/AL HYDROX/SIMETH 30 ML UNIT-DOSE CUP PO PRN (16:52)
[2021-05-15] MEDS ORDERED: LOPERAMIDE HCL 2 MG CAPSULE PO PRN (16:52)
[2021-05-15] MEDS ORDERED: P-EPHED 60MG/TRIPROLIDI 2.5MG TABLET PO PRN (16:52)
[2021-05-15] MEDS ORDERED: MELATONIN 5 MG TABLETS PO SCH (22:00)
[2021-05-15] MEDS: LIDOCAINE PATCH REMOVAL MC SCH (22:23)
[2021-05-15] MEDS: hydrOXYzine PAMOATE 25 MG CAPSULE (FP) PO PRN (22:26)
[2021-05-15] MEDS: THIAMINE HCL 100 MG TABLET (FP) PO SCH (22:26)
[2021-05-15] MEDS: MIRTAZAPINE 15 MG TABLET (FP) PO SCH (22:26)
[2021-05-15] MEDS: TRIAMCINOLONE ACET 0.1% CREAM 15 GM TUBE TP SCH (22:28)
[2021-05-16] MEDS: ACETAMINOPHEN 325 MG TABLET (FP) PO PRN (03:55)
[2021-05-16] MEDS: NICOTINE 10 MG CARTRIDGE (INHALER) IH PRN (06:11)
[2021-05-16] MEDS: PRENATAL VITAMINS W/ FOLIC ACID TABLET (FP) PO SCH (10:22)
[2021-05-16] MEDS: FAMOTIDINE 20 MG TABLET PO SCH (10:22)
[2021-05-16] MEDS: LIDOCAINE 5% TOPICAL PATCH TP SCH (10:22)
[2021-05-16] MEDS: hydrOXYzine PAMOATE 25 MG CAPSULE (FP) PO PRN ×2 (10:22→19:23)
[2021-05-16] MEDS: METHOCARBAMOL 500 MG TABLET PO PRN ×2 (10:58→21:42)
[2021-05-16] MEDS: COLLOIDAL OATMEAL 1 BAR EACH TP PRN (12:07)
[2021-05-16] MEDS: TRIAMCINOLONE ACET 0.1% CREAM 15 GM TUBE TP SCH ×2 (12:07→21:42)
[2021-05-16] MEDS: SUVOREXANT 5 MG TABLET PO PRN (21:42)
[2021-05-16] MEDS: THIAMINE HCL 100 MG TABLET (FP) PO SCH (21:42)
[2021-05-16] MEDS: MIRTAZAPINE 15 MG TABLET (FP) PO SCH (21:42)
[2021-05-16] MEDS: LIDOCAINE PATCH REMOVAL MC SCH (21:42)
[2021-05-17] MEDS: IBUPROFEN 400 MG TABLET (FP) PO PRN ×3 (02:58→17:44)
[2021-05-17] MEDS: METHOCARBAMOL 500 MG TABLET PO PRN ×3 (06:14→22:00)
[2021-05-17] MEDS: hydrOXYzine PAMOATE 25 MG CAPSULE (FP) PO PRN ×4 (06:31→20:27)
[2021-05-17] MEDS: PRENATAL VITAMINS W/ FOLIC ACID TABLET (FP) PO SCH (10:11)
[2021-05-17] MEDS: LIDOCAINE 5% TOPICAL PATCH TP SCH (10:11)
[2021-05-17] MEDS: TRIAMCINOLONE ACET 0.1% CREAM 15 GM TUBE TP SCH ×2 (10:11→22:01)
[2021-05-17] MEDS: FAMOTIDINE 20 MG TABLET PO SCH (10:13)
[2021-05-17] MEDS: MIRTAZAPINE 15 MG TABLET (FP) PO SCH (22:00)
[2021-05-17] MEDS: THIAMINE HCL 100 MG TABLET (FP) PO SCH (22:00)
[2021-05-17] MEDS: LIDOCAINE PATCH REMOVAL MC SCH (22:00)
[2021-05-17] MEDS: SUVOREXANT 5 MG TABLET PO PRN (22:01)
[2021-05-17] MEDS: NICOTINE 10 MG CARTRIDGE (INHALER) IH PRN (22:01)
[2021-05-18] MEDS: hydrOXYzine PAMOATE 25 MG CAPSULE (FP) PO PRN ×4 (06:16→21:48)
[2021-05-18] MEDS: METHOCARBAMOL 500 MG TABLET PO PRN ×3 (06:16→21:48)
[2021-05-18] MEDS: PRENATAL VITAMINS W/ FOLIC ACID TABLET (FP) PO SCH (10:19)
[2021-05-18] MEDS: LIDOCAINE 5% TOPICAL PATCH TP SCH (10:19)
[2021-05-18] MEDS: TRIAMCINOLONE ACET 0.1% CREAM 15 GM TUBE TP SCH ×3 (10:19→21:48)
[2021-05-18] MEDS: FAMOTIDINE 20 MG TABLET PO SCH (10:20)
[2021-05-18] MEDS: IBUPROFEN 400 MG TABLET (FP) PO PRN ×2 (10:21→17:56)
[2021-05-18] MEDS: SUVOREXANT 5 MG TABLET PO PRN (21:47)
[2021-05-18] MEDS: THIAMINE HCL 100 MG TABLET (FP) PO SCH (21:47)
[2021-05-18] MEDS: MIRTAZAPINE 15 MG TABLET (FP) PO SCH (21:47)
[2021-05-18] MEDS: LIDOCAINE PATCH REMOVAL MC SCH (21:48)
[2021-05-19] MEDS: IBUPROFEN 400 MG TABLET (FP) PO PRN ×3 (03:36→17:58)
[2021-05-19] MEDS: hydrOXYzine PAMOATE 25 MG CAPSULE (FP) PO PRN ×3 (06:05→21:49)
[2021-05-19] MEDS: METHOCARBAMOL 500 MG TABLET PO PRN ×2 (06:05→14:40)
[2021-05-19] MEDS: FAMOTIDINE 20 MG TABLET PO SCH (10:43)
[2021-05-19] MEDS: TRIAMCINOLONE ACET 0.1% CREAM 15 GM TUBE TP SCH ×2 (10:43→21:48)
[2021-05-19] MEDS: PRENATAL VITAMINS W/ FOLIC ACID TABLET (FP) PO SCH (10:43)
[2021-05-19] MEDS: LIDOCAINE 5% TOPICAL PATCH TP SCH (10:45)
[2021-05-19 12:09] LABS: SARS-CoV-2 NAA Not Detected (Not Detected)
[2021-05-19] MEDS: SUVOREXANT 10 MG TABLET PO PRN (21:48)
[2021-05-19] MEDS: LIDOCAINE PATCH REMOVAL MC SCH (21:48)
[2021-05-19] MEDS: QUEtiapine FUMARATE 25 MG TABLET PO SCH (21:48)
[2021-05-19] MEDS: THIAMINE HCL 100 MG TABLET (FP) PO SCH (21:48)
[2021-05-19] MEDS: MIRTAZAPINE 15 MG TABLET (FP) PO SCH (21:48)
[2021-05-20] MEDS: IBUPROFEN 400 MG TABLET (FP) PO PRN ×2 (02:43→10:26)
[2021-05-20] MEDS: hydrOXYzine PAMOATE 25 MG CAPSULE (FP) PO PRN ×4 (06:28→21:57)
[2021-05-20] MEDS: METHOCARBAMOL 500 MG TABLET PO PRN ×3 (06:28→21:56)
[2021-05-20] MEDS: PRENATAL VITAMINS W/ FOLIC ACID TABLET (FP) PO SCH (10:25)
[2021-05-20] MEDS: LIDOCAINE 5% TOPICAL PATCH TP SCH (10:26)
[2021-05-20] MEDS: FAMOTIDINE 20 MG TABLET PO SCH (10:26)
[2021-05-20] MEDS: TRIAMCINOLONE ACET 0.1% CREAM 15 GM TUBE TP SCH ×2 (10:26→22:34)
[2021-05-20] MEDS: QUEtiapine FUMARATE 25 MG TABLET PO SCH ×2 (10:26→21:56)
[2021-05-20] MEDS: MIRTAZAPINE 15 MG TABLET (FP) PO SCH (21:56)
[2021-05-20] MEDS: NICOTINE 10 MG CARTRIDGE (INHALER) IH PRN (21:56)
[2021-05-20] MEDS: THIAMINE HCL 100 MG TABLET (FP) PO SCH (21:56)
[2021-05-20] MEDS: LIDOCAINE PATCH REMOVAL MC SCH (21:57)
[2021-05-20] MEDS ORDERED: SUVOREXANT 5 MG TABLET PO PRN (22:00)
[2021-05-21] MEDS: hydrOXYzine PAMOATE 25 MG CAPSULE (FP) PO PRN ×3 (06:00→21:50)
[2021-05-21] MEDS: METHOCARBAMOL 500 MG TABLET PO PRN ×3 (06:00→21:50)
[2021-05-21] MEDS: LIDOCAINE 5% TOPICAL PATCH TP SCH (09:10)
[2021-05-21] MEDS: QUEtiapine FUMARATE 25 MG TABLET PO SCH ×2 (09:10→21:50)
[2021-05-21] MEDS: FAMOTIDINE 20 MG TABLET PO SCH (09:10)
[2021-05-21] MEDS: PRENATAL VITAMINS W/ FOLIC ACID TABLET (FP) PO SCH (09:10)
[2021-05-21] MEDS: IBUPROFEN 400 MG TABLET (FP) PO PRN ×2 (09:10→19:43)
[2021-05-21] MEDS: TRIAMCINOLONE ACET 0.1% CREAM 15 GM TUBE TP SCH ×2 (09:11→21:50)
[2021-05-21] MEDS: COLLOIDAL OATMEAL 1 BAR EACH TP PRN (09:12)
[2021-05-21] MEDS: SUVOREXANT 10 MG TABLET PO PRN (21:49)
[2021-05-21] MEDS: MIRTAZAPINE 15 MG TABLET (FP) PO SCH (21:50)
[2021-05-21] MEDS: THIAMINE HCL 100 MG TABLET (FP) PO SCH (21:50)
[2021-05-21] MEDS: LIDOCAINE PATCH REMOVAL MC SCH (21:50)
[2021-05-21] MEDS: NICOTINE 10 MG CARTRIDGE (INHALER) IH PRN (21:51)
[2021-05-22] MEDS: IBUPROFEN 400 MG TABLET (FP) PO PRN ×3 (02:58→18:03)
[2021-05-22] MEDS: hydrOXYzine PAMOATE 25 MG CAPSULE (FP) PO PRN ×4 (06:15→21:41)
[2021-05-22] MEDS: METHOCARBAMOL 500 MG TABLET PO PRN ×2 (06:15→18:03)
[2021-05-22] MEDS: LIDOCAINE 5% TOPICAL PATCH TP SCH (10:43)
[2021-05-22] MEDS: PRENATAL VITAMINS W/ FOLIC ACID TABLET (FP) PO SCH (10:43)
[2021-05-22] MEDS: QUEtiapine FUMARATE 25 MG TABLET PO SCH ×2 (10:44→21:41)
[2021-05-22] MEDS: FAMOTIDINE 20 MG TABLET PO SCH (10:44)
[2021-05-22] MEDS: TRIAMCINOLONE ACET 0.1% CREAM 15 GM TUBE TP SCH ×2 (10:46→21:43)
[2021-05-22] MEDS: THIAMINE HCL 100 MG TABLET (FP) PO SCH (21:41)
[2021-05-22] MEDS: LIDOCAINE PATCH REMOVAL MC SCH (21:41)
[2021-05-22] MEDS: SUVOREXANT 10 MG TABLET PO PRN (21:41)
[2021-05-22] MEDS: MIRTAZAPINE 15 MG TABLET (FP) PO SCH (21:41)
[2021-05-22] MEDS: ACETAMINOPHEN 325 MG TABLET (FP) PO PRN (21:42)
[2021-05-23] MEDS: hydrOXYzine PAMOATE 25 MG CAPSULE (FP) PO PRN ×3 (06:36→21:36)
[2021-05-23] MEDS: METHOCARBAMOL 500 MG TABLET PO PRN ×3 (06:36→21:38)
[2021-05-23] MEDS: FAMOTIDINE 20 MG TABLET PO SCH (10:13)
[2021-05-23] MEDS: QUEtiapine FUMARATE 25 MG TABLET PO SCH ×2 (10:13→21:34)
[2021-05-23] MEDS: PRENATAL VITAMINS W/ FOLIC ACID TABLET (FP) PO SCH (10:13)
[2021-05-23] MEDS: LIDOCAINE 5% TOPICAL PATCH TP SCH (10:14)
[2021-05-23] MEDS: TRIAMCINOLONE ACET 0.1% CREAM 15 GM TUBE TP SCH ×2 (10:15→21:35)
[2021-05-23] MEDS: IBUPROFEN 400 MG TABLET (FP) PO PRN ×2 (10:16→17:07)
[2021-05-23] MEDS: NICOTINE 10 MG CARTRIDGE (INHALER) IH PRN (20:24)
[2021-05-23] MEDS: SUVOREXANT 10 MG TABLET PO PRN (21:34)
[2021-05-23] MEDS: MIRTAZAPINE 15 MG TABLET (FP) PO SCH (21:35)
[2021-05-23] MEDS: THIAMINE HCL 100 MG TABLET (FP) PO SCH (21:35)
[2021-05-23] MEDS: LIDOCAINE PATCH REMOVAL MC SCH (21:35)
[2021-05-24] MEDS: IBUPROFEN 400 MG TABLET (FP) PO PRN ×2 (06:06→18:00)
[2021-05-24] MEDS: METHOCARBAMOL 500 MG TABLET PO PRN ×3 (06:06→21:37)
[2021-05-24] MEDS: hydrOXYzine PAMOATE 25 MG CAPSULE (FP) PO PRN ×3 (06:07→21:36)
[2021-05-24] MEDS: QUEtiapine FUMARATE 25 MG TABLET PO SCH ×2 (10:05→21:37)
[2021-05-24] MEDS: PRENATAL VITAMINS W/ FOLIC ACID TABLET (FP) PO SCH (10:05)
[2021-05-24] MEDS: FAMOTIDINE 20 MG TABLET PO SCH ×2 (10:05→21:38)
[2021-05-24] MEDS: LIDOCAINE 5% TOPICAL PATCH TP SCH (10:05)
[2021-05-24] MEDS: TRIAMCINOLONE ACET 0.1% CREAM 15 GM TUBE TP SCH ×2 (10:06→21:40)
[2021-05-24] MEDS: NICOTINE 10 MG CARTRIDGE (INHALER) IH PRN (20:20)
[2021-05-24] MEDS: ACETAMINOPHEN 325 MG TABLET (FP) PO PRN (21:36)
[2021-05-24] MEDS: THIAMINE HCL 100 MG TABLET (FP) PO SCH (21:37)
[2021-05-24] MEDS: SUVOREXANT 10 MG TABLET PO PRN (21:37)
[2021-05-24] MEDS: LIDOCAINE PATCH REMOVAL MC SCH (21:37)
[2021-05-24] MEDS: MIRTAZAPINE 15 MG TABLET (FP) PO SCH (21:38)
[2021-05-25] MEDS: METHOCARBAMOL 500 MG TABLET PO PRN ×2 (06:13→21:30)
[2021-05-25] MEDS: hydrOXYzine PAMOATE 25 MG CAPSULE (FP) PO PRN ×3 (06:13→21:31)
[2021-05-25] MEDS: IBUPROFEN 400 MG TABLET (FP) PO PRN (06:13)
[2021-05-25] MEDS: PRENATAL VITAMINS W/ FOLIC ACID TABLET (FP) PO SCH (10:33)
[2021-05-25] MEDS: TRIAMCINOLONE ACET 0.1% CREAM 15 GM TUBE TP SCH ×2 (10:33→21:33)
[2021-05-25] MEDS: LIDOCAINE 5% TOPICAL PATCH TP SCH (10:33)
[2021-05-25] MEDS: ACETAMINOPHEN 325 MG TABLET (FP) PO PRN ×2 (10:34→17:44)
[2021-05-25] MEDS: FAMOTIDINE 20 MG TABLET PO SCH ×2 (10:34→21:31)
[2021-05-25] MEDS: QUEtiapine FUMARATE 25 MG TABLET PO SCH (10:36)
[2021-05-25] MEDS: NICOTINE 10 MG CARTRIDGE (INHALER) IH PRN (20:43)
[2021-05-25] MEDS: SUVOREXANT 10 MG TABLET PO PRN (21:30)
[2021-05-25] MEDS: MIRTAZAPINE 15 MG TABLET (FP) PO SCH (21:31)
[2021-05-25] MEDS: QUEtiapine FUMARATE 50 MG TABLET PO SCH (21:31)
[2021-05-25] MEDS: THIAMINE HCL 100 MG TABLET (FP) PO SCH (21:31)
[2021-05-25] MEDS: LIDOCAINE PATCH REMOVAL MC SCH (21:33)
[2021-05-26] MEDS: IBUPROFEN 400 MG TABLET (FP) PO PRN ×3 (01:47→21:28)
[2021-05-26] MEDS: hydrOXYzine PAMOATE 25 MG CAPSULE (FP) PO PRN ×3 (06:08→17:53)
[2021-05-26] MEDS: METHOCARBAMOL 500 MG TABLET PO PRN ×2 (06:08→21:26)
[2021-05-26] MEDS: PRENATAL VITAMINS W/ FOLIC ACID TABLET (FP) PO SCH (10:13)
[2021-05-26] MEDS: QUEtiapine FUMARATE 25 MG TABLET PO SCH (10:13)
[2021-05-26] MEDS: FAMOTIDINE 20 MG TABLET PO SCH ×2 (10:13→21:26)
[2021-05-26] MEDS: NICOTINE 10 MG CARTRIDGE (INHALER) IH PRN ×2 (10:14→21:28)
[2021-05-26] MEDS: LIDOCAINE 5% TOPICAL PATCH TP SCH (10:14)
[2021-05-26] MEDS: TRIAMCINOLONE ACET 0.1% CREAM 15 GM TUBE TP SCH ×2 (10:14→21:27)
[2021-05-26] MEDS: SUVOREXANT 10 MG TABLET PO PRN (21:26)
[2021-05-26] MEDS: THIAMINE HCL 100 MG TABLET (FP) PO SCH (21:26)
[2021-05-26] MEDS: MIRTAZAPINE 15 MG TABLET (FP) PO SCH (21:27)
[2021-05-26] MEDS: LIDOCAINE PATCH REMOVAL MC SCH (21:27)
[2021-05-26] MEDS: QUEtiapine FUMARATE 50 MG TABLET PO SCH (21:27)
[2021-05-27] MEDS: hydrOXYzine PAMOATE 25 MG CAPSULE (FP) PO PRN ×2 (06:19→09:10)
[2021-05-27] MEDS: METHOCARBAMOL 500 MG TABLET PO PRN (06:19)
[2021-05-27 07:26] VITALS: BP 124/78; PULSE 75; TEMP 97.8
[2021-05-27] MEDS: LIDOCAINE 5% TOPICAL PATCH TP SCH (09:09)
[2021-05-27] MEDS: IBUPROFEN 400 MG TABLET (FP) PO PRN (09:10)
[2021-05-27] MEDS: QUEtiapine FUMARATE 25 MG TABLET PO SCH (09:10)
[2021-05-27] MEDS: FAMOTIDINE 20 MG TABLET PO SCH (09:10)
[2021-05-27] MEDS: PRENATAL VITAMINS W/ FOLIC ACID TABLET (FP) PO SCH (09:11)
[2021-05-27] MEDS: NICOTINE 10 MG CARTRIDGE (INHALER) IH PRN (09:13)
[2021-05-27] MEDS: TRIAMCINOLONE ACET 0.1% CREAM 15 GM TUBE TP SCH (09:48)
== END 2021-05-27 09:25 | disposition home or self-care (01) | DRG 772 ==
LOC: YASAS 16:16 → Y5N 18:08
PROVIDERS: ADMIT Allergy & Immunology; ATTEND Allergy & Immunology
PROC: HZ42ZZZ Group Counseling for Substance Abuse Treatment, Cognitive-Behavioral (ICD-10-PCS; principal; 2021-05-15)
DX: F10.20 Alcohol dependence, uncomplicated (principal); F14.20 Cocaine dependence, uncomplicated; F12.20 Cannabis dependence, uncomplicated; F17.210 Nicotine dependence, cigarettes, uncomplicated; F19.282 Other psychoactive substance dependence with psychoactive substance-induced sleep disorder; F19.280 Other psychoactive substance dependence with psychoactive substance-induced anxiety disorder; F19.24 Other psychoactive substance dependence with psychoactive substance-induced mood disorder; F31.9 Bipolar disorder, unspecified; F41.9 Anxiety disorder, unspecified; D50.9 Iron deficiency anemia, unspecified; G43.109 Migraine with aura, not intractable, without status migrainosus; K21.9 Gastro-esophageal reflux disease without esophagitis; M06.9 Rheumatoid arthritis, unspecified; Z91.011 Allergy to milk products
CPT/HCPCS: C9803; U0003; U0005